=== PATIENT | female | born 1945 | race Caucasian/White ===

== ENCOUNTER → 2017-12-30 10:12 | Outpatient (CLI) | payer MEDICARE, SELFPAY ==
[2017-12-30 10:58] LABS: Basophils % 0.8 % (0.1-2.0); Eosinophils # 0.4 K/mm3 (0.0-0.4); Hematocrit 39.1 % (37.0-47.0); Hemoglobin 12.8 g/dL (12.2-16.2); Lymphocytes # 1.5 K/mm3 (0.7-4.5); Lymphocytes % 34.1 K/mm3 (10-50); Mean Corpuscular HGB Conc 32.6 g/dL (31.8-35.4); Mean Corpuscular Hemoglobin 30.2 pg (27.0-31.2); Mean Corpuscular Volume 92.6 fl (81-99); Mean Platelet Volume 7.8 fl (7.4-10.4); Monocytes # 0.3 K/mm3 (0.1-1.0); Monocytes % 5.6 % (1.7-9.3); Neutrophils # 2.3 K/mm3 (1.8-7.8); Neutrophils % 50.3 % (37.0-80.0); Platelet Count 227 K/mm3 (142-424); Red Blood Count 4.23 M/mm3 (4.20-5.40); Red Cell Distribution Width 12.9 % (11.5-17.5); White Blood Count 4.5 K/mm3 (4.8-10.8)
[2017-12-30 12:03] LABS: Alanine Aminotransferase 34 U/L (12-78); Albumin Level 3.9 gm/dL (3.4-5.0); Albumin/Globulin Ratio 1.2 (1.1-1.8); Alkaline Phosphatase 69 U/L (46-116); Anion Gap 11.6 mEq/L (5-15); Aspartate Amino Transferase 16 U/L (15-37); Bilirubin,Total 0.6 mg/dL (0.2-1.0); Blood Urea Nitrogen 21 mg/dL (7-18); Calcium 9.5 mg/dL (8.5-10.1); Carbon Dioxide 28 mmol/L (21.0-32.0); Chloride 107 mmol/L (98-107); Chol/HDL Ratio 3.3 (1-3.5); Cholesterol 140 mg/dL (140-200); Creatinine,Serum 1.11 mg/dL (0.55-1.02); Estimated Glomerular Filt Rate 48 ml/min (>60); GFR (African American) 59 ML/MIN (>60); Globulin 3.2 gm/dl (1.3-3.2); Glucose 89 mg/dL (74-106); HDL Cholesterol 43 mg/dL (29-89); LDL Cholesterol 66 mg/dL (0-130); Potassium 4.6 mmoL/L (3.5-5.1); Sodium 142 mmol/L (136-145); Total Protein,Serum 7.1 gm/dL (6.4-8.2); Triglycerides 154 mg/dL (30-200); VLDL Cholesterol 31 mg/dL (0-40)
[2018-01-01 14:51] LABS: Vitamin B12 317 pg/mL (232-1245)
== END ==
PROVIDERS: PCP Internal Medicine Adolescent Medicine; Visit Provider Nurse Practitioner Family
DX: E78.2 Mixed hyperlipidemia (principal); I10 Essential (primary) hypertension; E03.9 Hypothyroidism, unspecified; E53.8 Deficiency of other specified B group vitamins
CPT/HCPCS: 36415; 80053; 80061; 82607; 84443; 85025

== ENCOUNTER → 2018-07-15 08:59 | Outpatient (POV) | payer MEDICARE, SELFPAY | PROVIDERS: Visit Provider Dermatology | DX: Z00.00 Encounter for general adult medical examination without abnormal findings (principal) ==

== ENCOUNTER → 2019-12-01 13:14 | Outpatient (POV) | payer MEDICARE, SELFPAY | PROVIDERS: PCP Internal Medicine Adolescent Medicine; Visit Provider Dermatology | DX: Z00.00 Encounter for general adult medical examination without abnormal findings (principal) ==

== ENCOUNTER → 2019-12-15 09:14 | Outpatient (CLI) | payer MEDICARE, SELFPAY ==
[2019-12-15 09:35] LABS: Basophils # 0.1 K/mm3 (0-0.2); Basophils % 1.1 % (0.1-2.0); Eosinophils # 0.5 K/mm3 (0.0-0.4); Eosinophils % 9.8 % (0.1-12.0); Hematocrit 41.1 % (37.0-47.0); Hemoglobin 13.9 g/dL (12.2-16.2); Lymphocytes # 1.7 K/mm3 (0.7-4.5); Mean Corpuscular HGB Conc 33.9 g/dL (31.8-35.4); Mean Corpuscular Hemoglobin 31.4 pg (27.0-31.2); Mean Corpuscular Volume 92.7 fl (81-99); Mean Platelet Volume 8.8 fl (7.4-10.4); Monocytes # 0.2 K/mm3 (0.1-1.0); Monocytes % 4.6 % (1.7-9.3); Neutrophils # 2.3 K/mm3 (1.8-7.8); Neutrophils % 48.5 % (37.0-80.0); Platelet Count 224 K/mm3 (142-424); Red Blood Count 4.44 M/mm3 (4.20-5.40); Red Cell Distribution Width 13.3 % (11.5-17.5); White Blood Count 4.7 K/mm3 (4.8-10.8)
[2019-12-15 10:38] LABS: Chloride 109 mmol/L (98-107)
[2019-12-15 10:39] LABS: Potassium 4.5 mmoL/L (3.5-5.1); Sodium 142 mmol/L (136-145)
[2019-12-15 10:41] LABS: Blood Urea Nitrogen 18 mg/dl (7-17); Estimated Glomerular Filt Rate 61 ml/min (>60); GFR (African American) 74 ML/MIN (>60)
[2019-12-15 10:42] LABS: Alanine Aminotransferase 24 U/L (12-78); Albumin Level 4.1 g/dl (3.5-5.0); Albumin/Globulin Ratio 1.5 (1.1-1.8); Alkaline Phosphatase 73 U/L (38-126); Anion Gap 11.5 mEq/L (5-15); Aspartate Amino Transferase 28 U/L (14-36); Bilirubin,Total 0.7 mg/dl (0.2-1.3); Calcium 9.3 mg/dl (8.4-10.2); Carbon Dioxide 26 mmol/L (22.0-30.0); Chol/HDL Ratio 3.4 (1-3.5); Cholesterol 151 mg/dl (140-200); Globulin 2.7 g/dL (1.3-3.2); Glucose 90 mg/dl (74-100); HDL Cholesterol 45 mg/dl (40-60); Total Protein,Serum 6.8 g/dl (6.3-8.2); Triglycerides 132 mg/dl (30-150); VLDL Cholesterol 26 mg/dL (0-40)
[2019-12-15 10:53] LABS: Direct LDL Cholesterol 86.73 mg/dL (100-129)
[2019-12-15 11:13] LABS: Thyroid Stimulating Hormone 2.87 uIU/mL (0.465-4.68)
[2019-12-16 19:44] LABS: Vitamin B12 738 pg/mL (232-1245)
== END ==
PROVIDERS: Visit Provider Nurse Practitioner Family
DX: I10 Essential (primary) hypertension (principal); E78.2 Mixed hyperlipidemia; E03.9 Hypothyroidism, unspecified; E53.8 Deficiency of other specified B group vitamins
CPT/HCPCS: 36415; 80053; 80061; 82607; 84443; 85025

== ENCOUNTER → 2019-12-31 10:06 | Outpatient (CLI) | payer MEDICARE, SELFPAY ==
--- NOTE | 2019-12-31 10:10 | US_ITS ---
PROCEDURE: US SOFT TISSUE HEAD AND NECK CLINICAL INDICATION: MANDIBULAR SWELLING COMPARISON: No exams were available for comparison FINDINGS: The submandibular glands have an unremarkable appearance. No obvious mass cyst or abnormal fluid collection in the area of swelling IMPRESSION: Unremarkable limited ultrasound of the neck. CT without and with contrast may provide further evaluation if there is indeed a palpable nodule in this region Dictated by: Samy Ortiz MD 12/31/2019 14:08 Samy Ortiz MD in [place] 12/31/2019 14:08
== END ==
PROVIDERS: PCP Internal Medicine Adolescent Medicine; Visit Provider Nurse Practitioner Family
DX: R22.0 Localized swelling, mass and lump, head (principal)
CPT/HCPCS: 76536

== ENCOUNTER → 2020-02-20 09:18 | Outpatient (CLI) | payer MEDICARE, SELFPAY ==
[2020-02-20 10:33] LABS: Coronavirus 19 IgG Antibody Positive (Negative); Coronavirus 19 IgM Antibody Negative (Negative)
== END ==
PROVIDERS: Visit Provider Internal Medicine Gastroenterology
DX: Z01.818 Encounter for other preprocedural examination (principal); Z13.810 Encounter for screening for upper gastrointestinal disorder
CPT/HCPCS: 36415; 86328

== ENCOUNTER 2020-02-22 06:56 | Day surgery (SDC) | payer MEDICARE, SELFPAY ==
[2020-01-19 12:53] VITALS: BMI 29.0
[2020-02-17 13:24] VITALS: BMI 29.0
[2020-02-22] VITALS (8 sets, daily range): BP systolic 129–159; BP diastolic 71–84; PULSE 68–84; RESP 18–20; TEMP 36.2–36.3; O2SAT 90–99
--- NOTE | 2020-02-22 07:28 | P.PN_ITS ---
[facility] Anesthesia Checklist - Patient Identification Patient Identification: Arm Band, Verbal (Name & ) - Structural Data Admitted From: Home Planned Operative Procedure/s: EGD Consent for Planned Operative Procedure(s) Verified: Yes Verified Documents: Surgical Consent, History and Physical - NPO Status Verified Time NPO: 22:00 - Chart Verification Results Verified: CBC, BMP - Additional verifications Anesthesia Reactions: No - Airway Assessment C-Spine Mobility Assessed: Yes (MP 1, TMD 3, Full neck ROM) TMJ Mobility Assessed: Yes Dentition: Good Dentition - Neurological Assessment Level of Consciousness: Awake, Alert, Appropriate, Follows Commands Hx Seizures: No Numbness or tingling in extremities: No - Anesthesia Plan Anesthesia Risk discussed: Yes Anesthesia Plan: Verified ASA Class: II Anesthesia Type: MAC [facility] History I have reviewed the patient's past medical history: Yes Medical History: Reports:: Gastroesophageal Reflux Disease(GERD), Hypertension, MRSA (nasal) Denies:: Cancer, Diabetes Mellitus Type 1, Diabetes Mellitus Type 2, Internal Pacemaker, Seizures *Have you ever received a pneumonia vaccine?: Yes *Have you received a flu vaccine this season?: Yes Other Medical History: Reports: Hypothyroidism Anesthesia experience/problems:: No prior complications Laterality Cases: Bilateral: Cataract Other Surgeries: Yes: , Other (Toe sx x2). No: Pacemaker Amputation: No Fractures: No - *Social History Last grade of school completed: Some college Alcohol Intake: never Substance Use Type: denies use *Occupational Status:: retired Housing: house Household Members: spouse *Travel in the last 8 weeks: None Family Hx:: No significant family history
--- NOTE | 2020-02-22 07:53 | P.PCN_ITS ---
[facility] Procedure Note Procedure Note:: Upper Endoscopy Procedure Report: Esophagogastroduodenoscopy with cold biopsies and TTS balloon dilation Endoscopost: Julio Cesar Hdz II, MD Referring Physician: MORIAH Amador Date of Procedure: February 22, 2020 Equipment: Olympus GIF 180 standard upper endoscope Sedation: MAC sedation Indications: Mrs. Montague is a 74-year-old female with a long history of GERD. She was having painful swallowing/odynophagia and sometimes feeling as if food was lodging in her throat. She did report some reflux. She gets some burning epigastric abdominal discomfort and dyspepsia. She has some belching and early satiety. She reports minor bloating. The patient reports no nausea. She has no dysphagia presently. She has normal bowel function. The patient did improve after initiation of omeprazole. The patient did have an EGD (by me) in February 2017 and did have a Schatzki's ring dilated at that time. She had nonerosive GERD with a 2 cm hiatal hernia. Procedure: Prior to the procedure, a history and physical exam was performed, and patient's medications and allergies were reviewed. The risks, benefits and alternatives of the sedation and procedure were discussed with the patient. All questions were answered and informed consent was obtained. The patient was brought to the procedure room. Patient identification and proposed procedure were verified by the physician and the nurse. The patient was placed in a left lateral decubitus position and the scope was passed under direct vision. Throughout the procedure, the patient's blood pressure, pulse, and oxygen saturations were monitored continuously. The upper GI endoscopy was accomplished without difficulty. The patient tolerated the procedure well. Findings: The scope was passed directly into the upper esophagus and advanced to the third portion of the duodenum. The post bulbar duodenum and duodenal bulb were normal with normal mucosa and conniventes. The scope was withdrawn through a normal duodenal bulb and pylorus into the stomach. There was some mild linear reactive gastropathy of the antrum and body. The remainder of the antrum, body and fundus of the stomach were grossly normal. Upon retroflexion there was a 2 cm hiatal hernia. 2 biopsies were taken in the antrum and along the lesser curvature for histology to rule out gastritis and/or H pylori. The scope was then withdrawn into the esophagus. There was a distal Schatzki's ring. This was dilated to 60 Beninese/20 mm with a TTS hydrostatic balloon. There were tertiary contractions and evidence of moderate esophageal dysmotility. The entire esophagus was dilated to 60 Beninese. There was some resistance at the cricopharyngeus. There was no evidence of reflux esophagitis or Butt's. The remainder of the esophageal mucosa was normal. Impression: 1. Nonerosive GERD with moderate esophageal dysmotility, cricopharyngeal spasm and small 2 cm hiatal hernia 2. Schatzki's ring dilated to 20 mm 3. Mild linear reactive gastropathy Plan: The patient does have functional GERD (uncomplicated GERD). She has responded to omeprazole. This is certainly driven by gas pressure gradients. We will discuss additional treatment options. She should have some clinical improvement with dilation as well.
== END 2020-02-22 09:24 | disposition home or self-care (01) ==
LOC: OUTP 06:58
PROVIDERS: PCP Internal Medicine Adolescent Medicine; Visit Provider Internal Medicine Gastroenterology
PROC: 0DJ08ZZ Inspection of Upper Intestinal Tract, Via Natural or Artificial Opening Endoscopic (ICD-10-PCS; CPT 43235; principal; 2020-02-22 08:00)
DX: K21.9 Gastro-esophageal reflux disease without esophagitis (principal); K22.2 Esophageal obstruction; K44.9 Diaphragmatic hernia without obstruction or gangrene; J39.2 Other diseases of pharynx; K31.9 Disease of stomach and duodenum, unspecified; I10 Essential (primary) hypertension; E03.9 Hypothyroidism, unspecified; Z86.14 Personal history of Methicillin resistant Staphylococcus aureus infection
CPT/HCPCS: 43239; 43249; 88305; C1726

== ENCOUNTER → 2020-07-04 07:18 | Outpatient (CLI) | payer MEDICARE, SELFPAY ==
[2020-07-04 07:39] LABS: Basophils % 0.9 % (0.1-2.0); Eosinophils # 0.4 K/mm3 (0.0-0.4); Eosinophils % 7.7 % (0.1-12.0); Hematocrit 38.3 % (37.0-47.0); Hemoglobin 12.6 g/dL (12.2-16.2); Lymphocytes # 1.8 K/mm3 (0.7-4.5); Lymphocytes % 37.6 % (10-50); Mean Corpuscular HGB Conc 32.8 g/dL (31.8-35.4); Mean Corpuscular Hemoglobin 30.3 pg (27.0-31.2); Mean Corpuscular Volume 92.4 fl (81-99); Monocytes # 0.3 K/mm3 (0.1-1.0); Monocytes % 5.3 % (1.7-9.3); Neutrophils # 2.3 K/mm3 (1.8-7.8); Neutrophils % 48.5 % (37.0-80.0); Platelet Count 233 K/mm3 (142-424); Red Blood Count 4.15 M/mm3 (4.20-5.40); Red Cell Distribution Width 13.4 % (11.5-17.5); White Blood Count 4.8 K/mm3 (4.8-10.8)
[2020-07-04 09:19] LABS: Alanine Aminotransferase 39 U/L (12-78); Albumin/Globulin Ratio 1.4 (1.1-1.8); Alkaline Phosphatase 84 U/L (38-126); Anion Gap 9.8 mEq/L (5-15); Aspartate Amino Transferase 37 U/L (14-36); Bilirubin,Total 0.3 mg/dl (0.2-1.3); Blood Urea Nitrogen 19 mg/dl (7-17); Calcium 9.8 mg/dl (8.4-10.2); Carbon Dioxide 26 mmol/L (22.0-30.0); Chloride 110 mmol/L (98-107); Chol/HDL Ratio 5.9 (1-3.5); Cholesterol 220 mg/dl (140-200); Estimated Glomerular Filt Rate 61 ml/min (>60); GFR (African American) 74 ML/MIN (>60); Globulin 2.9 g/dL (1.3-3.2); Glucose 97 mg/dl (74-100); HDL Cholesterol 37 mg/dl (40-60); Potassium 4.8 mmoL/L (3.5-5.1); Sodium 141 mmol/L (136-145); Total Protein,Serum 6.9 g/dl (6.3-8.2); Triglycerides 187 mg/dl (30-150); VLDL Cholesterol 37 mg/dL (0-40)
[2020-07-04 09:30] LABS: Direct LDL Cholesterol 153.48 mg/dL (100-129)
[2020-07-04 09:51] LABS: Thyroid Stimulating Hormone 0.38 uIU/mL (0.465-4.68)
[2020-07-04 10:09] LABS: Vitamin B12 450 pg/mL (239-931)
== END ==
PROVIDERS: Visit Provider Internal Medicine Adolescent Medicine
DX: I10 Essential (primary) hypertension (principal); E78.2 Mixed hyperlipidemia; E03.9 Hypothyroidism, unspecified; E53.8 Deficiency of other specified B group vitamins; K21.9 Gastro-esophageal reflux disease without esophagitis
CPT/HCPCS: 36415; 80053; 80061; 82607; 84443; 85025

== ENCOUNTER → 2020-10-12 16:18 | Outpatient (CLI) | payer MEDICARE, SELFPAY | PROVIDERS: Visit Provider Nurse Practitioner Family | DX: R35.0 Frequency of micturition (principal) | CPT/HCPCS: 87086; 87088; 87186 ==

== ENCOUNTER → 2020-10-17 09:14 | Outpatient (CLI) | payer MEDICARE, SELFPAY ==
[2020-10-17 11:23] LABS: Chloride 107 mmol/L (98-107); Potassium 4.9 mmoL/L (3.5-5.1); Sodium 140 mmol/L (136-145)
[2020-10-17 11:26] LABS: Alanine Aminotransferase 22 U/L (12-78); Albumin Level 4.1 g/dl (3.5-5.0); Albumin/Globulin Ratio 1.5 (1.1-1.8); Alkaline Phosphatase 90 U/L (38-126); Anion Gap 11.9 mEq/L (5-15); Aspartate Amino Transferase 28 U/L (14-36); Bilirubin,Total 0.6 mg/dl (0.2-1.3); Blood Urea Nitrogen 19 mg/dl (7-17); Carbon Dioxide 26 mmol/L (22.0-30.0); Cholesterol 150 mg/dl (140-200); Estimated Glomerular Filt Rate 70 ml/min (>60); GFR (African American) 85 ML/MIN (>60); Globulin 2.7 g/dL (1.3-3.2); Total Protein,Serum 6.8 g/dl (6.3-8.2); Triglycerides 170 mg/dl (30-150); VLDL Cholesterol 34 mg/dL (0-40)
[2020-10-17 11:27] LABS: Calcium 8.9 mg/dl (8.4-10.2); Chol/HDL Ratio 4.5 (1-3.5); Glucose 91 mg/dl (74-100); HDL Cholesterol 33 mg/dl (40-60)
[2020-10-17 11:38] LABS: Direct LDL Cholesterol 85.57 mg/dL (100-129)
== END ==
PROVIDERS: Visit Provider Nurse Practitioner Family
DX: E78.2 Mixed hyperlipidemia (principal); R35.0 Frequency of micturition
CPT/HCPCS: 36415; 80053; 80061; 87086

== ENCOUNTER → 2021-03-13 07:46 | Outpatient (CLI) | payer MEDICARE, SELFPAY ==
[2021-03-13 09:36] LABS: Thyroid Stimulating Hormone 1.74 uIU/mL (0.465-4.68)
== END ==
PROVIDERS: Visit Provider Internal Medicine Adolescent Medicine
DX: E03.9 Hypothyroidism, unspecified (principal)
CPT/HCPCS: 36415; 84443

== ENCOUNTER → 2021-03-15 10:58 | Outpatient (CLI) | payer MEDICARE, SELFPAY ==
--- NOTE | 2021-03-15 11:03 | XR_ITS ---
PROCEDURE: XR CERVICAL SPINE 5V CLINICAL INDICATION: HAND NUMBNESS, NECK PAIN COMPARISON: No exams were available for comparison FINDINGS: Normal alignment. Multilevel cervical spondylosis. Degenerative disc disease C4-C5 with endplate osteophytes, C5-C6 with endplate osteophytes, and C6-C7 with endplate osteophytes. Nuchal ligament calcification noted to at the C6 level. Foraminal narrowing on the left at C3-C4 and on the right at C4-C5. Mild cervical curvature convex right. Facet hypertrophic changes are present on the left at C3-C4. No fracture or dislocation. IMPRESSION: Degenerative changes as described above. Dictated by: Samy Ortiz MD 03/15/2021 14:27 Samy Ortiz MD in [place] 03/15/2021 14:27
== END ==
PROVIDERS: PCP Internal Medicine Adolescent Medicine; Visit Provider Internal Medicine Adolescent Medicine
DX: M54.2 Cervicalgia (principal); R20.0 Anesthesia of skin
CPT/HCPCS: 72050

== ENCOUNTER 2021-04-14 10:00 | Outpatient (RCR) | payer MEDICARE, SELFPAY ==
--- NOTE | 2021-03-23 11:29 | HMH.PTOPEV ---
PT Outpatient Evaluation Rehab PT Outpatient Evaluation Start: 03/23/21 10:51 Freq: Status: Active Protocol: Document 03/23/21 11:17 LAVERN (Rec: 03/23/21 11:29 LAVERN [id number]) Electronically Signed By Valentín Case, PT 03/23/21 11:17 Outpatient Therapy Subjective History Subjective History Patient is a 75 year old female presenting to outpatient PT with reports of chronic cervical spine pain with intermittent LUE radicular symptoms. Symptoms of insidious onset starting approximately 5 years ago. Most recent imaging indicates multi-level spondylosis/DDD. Comorbidities include hx of HTN,HL and hypothyroidism. Chief Complaint Pain,Stiff,Paresthesia Symptom Type Ache,Numbness,Tingling Symptoms Relieved By Rest/Positioning Symptoms Aggravated By Physical Activity,Lifting Prior Functional Limitations None Current Functional Limitations Reaching,Lifting,Housework, Sleeping Symptom Description Constant but Variable Level of pain today (0-10) 3 Pain scale - at its best (0-10) 3 Pain scale - at its worst (0-10) 5 Cervical Eval Palpation Cervical Muscles L Cervical Paraspinal,L Suboccipital,L CT Junction Posture Head/C-Spine Posture Sitting Position Neutral Position Head/C-Spine Posture Standing Position Neutral Position Flexibility Deficits Upper Trapezius Muscle Length (L) Moderate Tightness Levaetor Scapulae Muscle Length (L) Moderate Tightness Scalene Group Muscle Length (L) Moderate Tightness Pectoralis Minor Muscle Length (L) Moderate Tightness Passive Joint Mobility Cervical PIVM Dec: R OA L OA R AA L AA R C2/3 L C2/3 R C3/4 L C3/4 R C4/5 L C4/5 R C5/6 L C5/6 R C6/7 L C6/7 R C7/T1 L C7/T1 AROM Cervical Spine Extension Active Range of 50 Motion (degrees) Cervical Spine Flexion Active Range of 40 Motion (degrees)
== END 2021-04-14 10:05 | disposition home or self-care (01) ==
LOC: PT 10:00
PROVIDERS: PCP Internal Medicine Adolescent Medicine; Visit Provider Internal Medicine Adolescent Medicine
DX: R20.0 Anesthesia of skin (principal)
CPT/HCPCS: 20560; 97010; 97014; 97035; 97110; 97163; G0283

== ENCOUNTER → 2022-10-18 15:14 | Outpatient (CLI) | payer MEDICARE, OTHER, SELFPAY ==
[2022-10-18 15:47] LABS: Basophils % 0.5 % (0.1-2.0); Eosinophils # 0.3 K/mm3 (0.0-0.4); Eosinophils % 4.5 % (0.1-12.0); Hematocrit 40.5 % (37.0-47.0); Hemoglobin 12.8 g/dL (12.2-16.2); Lymphocytes # 1.9 K/mm3 (0.7-4.5); Lymphocytes % 28.1 % (10-50); Mean Corpuscular HGB Conc 31.8 g/dL (31.8-35.4); Mean Corpuscular Volume 91.3 fl (81-99); Mean Platelet Volume 8.4 fl (7.4-10.4); Monocytes # 0.3 K/mm3 (0.1-1.0); Monocytes % 4.9 % (1.7-9.3); Neutrophils # 4.3 K/mm3 (1.8-7.8); Platelet Count 244 K/mm3 (142-424); Red Blood Count 4.43 M/mm3 (4.20-5.40); Red Cell Distribution Width 13.6 % (11.5-17.5); White Blood Count 6.9 K/mm3 (4.8-10.8)
[2022-10-18 16:37] LABS: 25-OH Vitamin D, Total 23.6 ng/mL (30-100)
[2022-10-18 16:50] LABS: Thyroid Stimulating Hormone 0.09 uIU/mL (0.465-4.68)
[2022-10-18 17:49] LABS: Chloride 108 mmol/L (98-107); Potassium 4.7 mmoL/L (3.5-5.1); Sodium 141 mmol/L (136-145)
[2022-10-18 17:51] LABS: Blood Urea Nitrogen 16 mg/dl (7-17); Estimated Glomerular Filt Rate 61 ml/min (>60); GFR (African American) 74 ML/MIN (>60)
[2022-10-18 17:52] LABS: Alanine Aminotransferase 23 U/L (12-78); Albumin Level 4.2 g/dl (3.5-5.0); Albumin/Globulin Ratio 1.6 (1.1-1.8); Alkaline Phosphatase 87 U/L (38-126); Anion Gap 15.7 mEq/L (5-15); Aspartate Amino Transferase 31 U/L (14-36); Bilirubin,Total 0.9 mg/dl (0.2-1.3); Calcium 8.8 mg/dl (8.4-10.2); Carbon Dioxide 22 mmol/L (22.0-30.0); Chol/HDL Ratio 3.2 (1-3.5); Cholesterol 133 mg/dl (140-200); Globulin 2.7 g/dL (1.3-3.2); Glucose 83 mg/dl (74-100); HDL Cholesterol 41 mg/dl (40-60); Total Protein,Serum 6.9 g/dl (6.3-8.2); Triglycerides 123 mg/dl (30-150); VLDL Cholesterol 25 mg/dL (0-40)
[2022-10-18 18:04] LABS: Direct LDL Cholesterol 71.12 mg/dL (100-129)
[2022-10-18 19:23] LABS: Vitamin B12 211 pg/mL (239-931)
== END ==
PROVIDERS: PCP Internal Medicine Adolescent Medicine; Visit Provider Nurse Practitioner Family
DX: E03.9 Hypothyroidism, unspecified (principal); E78.2 Mixed hyperlipidemia; E55.9 Vitamin D deficiency, unspecified; E53.8 Deficiency of other specified B group vitamins; R53.83 Other fatigue
CPT/HCPCS: 36415; 80053; 80061; 82306; 82607; 84443; 85025

== ENCOUNTER → 2023-02-26 09:10 | Outpatient (CLI) | payer MEDICARE, OTHER, SELFPAY ==
[2023-02-26 09:36] LABS: Basophils % 0.6 % (0.1-2.0); Eosinophils # 0.2 K/mm3 (0.0-0.4); Eosinophils % 4.6 % (0.1-12.0); Hemoglobin 13.1 g/dL (12.2-16.2); Lymphocytes # 1.1 K/mm3 (0.7-4.5); Lymphocytes % 23.5 % (10-50); Mean Corpuscular HGB Conc 34.5 g/dL (31.8-35.4); Mean Corpuscular Hemoglobin 31.9 pg (27.0-31.2); Mean Corpuscular Volume 92.5 fl (81-99); Mean Platelet Volume 8.9 fl (7.4-10.4); Monocytes # 0.3 K/mm3 (0.1-1.0); Monocytes % 5.5 % (1.7-9.3); Neutrophils # 3.1 K/mm3 (1.8-7.8); Neutrophils % 65.8 % (37.0-80.0); Platelet Count 213 K/mm3 (142-424); Red Blood Count 4.11 M/mm3 (4.20-5.40); Red Cell Distribution Width 13.6 % (11.5-17.5); White Blood Count 4.6 K/mm3 (4.8-10.8)
[2023-02-26 10:03] LABS: Alanine Aminotransferase 27 U/L (12-78); Albumin/Globulin Ratio 1.5 (1.1-1.8); Alkaline Phosphatase 89 U/L (38-126); Anion Gap 12.3 mEq/L (5-15); Aspartate Amino Transferase 29 U/L (14-36); Bilirubin,Total 0.6 mg/dl (0.2-1.3); Blood Urea Nitrogen 17 mg/dl (7-17); Carbon Dioxide 24 mmol/L (22.0-30.0); Chloride 110 mmol/L (98-107); Chol/HDL Ratio 3.8 (1-3.5); Cholesterol 124 mg/dl (140-200); Estimated Glomerular Filt Rate 61 ml/min (>60); GFR (African American) 74 ML/MIN (>60); Globulin 2.6 g/dL (1.3-3.2); Glucose 98 mg/dl (74-100); HDL Cholesterol 33 mg/dl (40-60); Potassium 4.3 mmoL/L (3.5-5.1); Sodium 142 mmol/L (136-145); Total Protein,Serum 6.6 g/dl (6.3-8.2); Triglycerides 199 mg/dl (30-150); VLDL Cholesterol 40 mg/dL (0-40)
[2023-02-26 10:14] LABS: Direct LDL Cholesterol 67.58 mg/dL (100-129)
[2023-02-26 10:18] LABS: 25-OH Vitamin D, Total 38.3 ng/mL (30-100)
[2023-02-26 10:36] LABS: Thyroid Stimulating Hormone 2.23 uIU/mL (0.465-4.68)
[2023-02-26 10:53] LABS: Free T4 (Free Thyroxine) 1.45 ng/dl (0.78-2.19)
[2023-02-26 10:55] LABS: Vitamin B12 768 pg/mL (239-931)
== END ==
PROVIDERS: PCP Nurse Practitioner Family; Visit Provider Nurse Practitioner Family
DX: E03.9 Hypothyroidism, unspecified (principal); E55.9 Vitamin D deficiency, unspecified; E78.2 Mixed hyperlipidemia; E53.8 Deficiency of other specified B group vitamins
CPT/HCPCS: 36415; 80053; 80061; 82306; 82607; 84439; 84443; 85025

== ENCOUNTER 2024-03-16 16:49 | Outpatient (CLI) | payer MEDICARE, OTHER, SELFPAY ==
--- NOTE | 2024-03-16 16:54 | XR_ITS ---
PROCEDURE INFORMATION: Exam: XR Left Ankle Exam date and time: 03/16/2024 4:59 PM Age: 78 years old Clinical indication: Pain; Ankle; Left; Additional info: Ankle pain TECHNIQUE: Imaging protocol: Radiologic exam of the left ankle. Views: 3 or more views. COMPARISON: CR XR FOOT WT BEARING LT 3V 03/16/2024 4:59 PM FINDINGS: Bones/joints: No fracture or subluxation. Minimal degenerative change. Chronic appearing fragmentation of small Achilles insertional spur. Soft tissues: Normal. IMPRESSION: No fracture or subluxation. Minimal degenerative change.
--- NOTE | 2024-03-16 16:54 | XR_ITS ---
PROCEDURE INFORMATION: Exam: XR Left Foot Complete; Alignment Exam date and time: 03/16/2024 4:59 PM Age: 78 years old Clinical indication: Pain; Foot; Left; Additional info: Foot pain TECHNIQUE: Imaging protocol: Radiologic exam of the left foot. Views: 3 or more views. COMPARISON: CR XR ANKLE WT BEARING LT MIN 3V 03/16/2024 4:59 PM FINDINGS: Bones/joints: No fracture or subluxation. Chronic appearing fragmentation of the small Achilles insertional spur. Minimal degenerative change. Soft tissues: Normal. IMPRESSION: No fracture or subluxation.
== END 2024-03-16 23:59 | disposition home or self-care (01) ==
PROVIDERS: PCP Internal Medicine Adolescent Medicine; Visit Provider Nurse Practitioner
DX: M79.672 Pain in left foot (principal)
CPT/HCPCS: 73610; 73630

== ENCOUNTER 2024-05-25 12:30 | Outpatient (CLI) | payer MEDICARE, OTHER, SELFPAY ==
[2024-05-25 12:48] LABS: Basophils # 0.1 K/mm3 (0-0.2); Basophils % 0.6 % (0.1-2.0); Eosinophils # 0.2 K/mm3 (0.0-0.4); Eosinophils % 2.5 % (0.1-12.0); Hematocrit 41.7 % (37.0-47.0); Hemoglobin 13.5 g/dL (12.2-16.2); Lymphocytes # 2.1 K/mm3 (0.7-4.5); Lymphocytes % 24.7 % (10-50); Mean Corpuscular HGB Conc 32.4 g/dL (31.8-35.4); Mean Corpuscular Hemoglobin 30.4 pg (27.0-31.2); Mean Corpuscular Volume 93.9 fl (81-99); Mean Platelet Volume 10.5 fl (7.4-10.4); Monocytes # 0.4 K/mm3 (0.1-1.0); Monocytes % 5.2 % (1.7-9.3); Neutrophils # 5.6 K/mm3 (1.8-7.8); Neutrophils % 66.8 % (37.0-80.0); Platelet Count 270 K/mm3 (142-424); Red Blood Count 4.44 M/mm3 (4.20-5.40); Red Cell Distribution Width 13.4 % (11.5-17.5); White Blood Count 8.3 K/mm3 (4.8-10.8)
[2024-05-25 13:42] LABS: Chloride 106 mmol/L (98-107)
[2024-05-25 13:43] LABS: Albumin Level 4.4 g/dl (3.5-5.0); Potassium 4.6 mmoL/L (3.5-5.1); Sodium 141 mmol/L (136-145)
[2024-05-25 13:45] LABS: Blood Urea Nitrogen 19 mg/dl (7-17); Estimated Glomerular Filt Rate 61 ml/min (>60); GFR (African American) 73 ML/MIN (>60)
[2024-05-25 13:46] LABS: Alanine Aminotransferase 30 U/L (12-78); Albumin/Globulin Ratio 1.8 (1.1-1.8); Alkaline Phosphatase 83 U/L (38-126); Anion Gap 13.6 mEq/L (5-15); Aspartate Amino Transferase 26 U/L (14-36); Bilirubin,Total 0.8 mg/dl (0.2-1.3); Calcium 9.3 mg/dl (8.4-10.2); Carbon Dioxide 26 mmol/L (22.0-30.0); Chol/HDL Ratio 3.9 (1-3.5); Cholesterol 149 mg/dl (140-200); Globulin 2.4 g/dL (1.3-3.2); Glucose 91 mg/dl (74-100); HDL Cholesterol 38 mg/dl (40-60); Total Protein,Serum 6.8 g/dl (6.3-8.2); Triglycerides 170 mg/dl (30-150); VLDL Cholesterol 34 mg/dL (0-40)
[2024-05-25 13:56] LABS: 25-OH Vitamin D, Total 36.3 ng/mL (30-100)
[2024-05-25 13:57] LABS: Direct LDL Cholesterol 73.56 mg/dL (100-129)
[2024-05-25 14:17] LABS: Thyroid Stimulating Hormone 1.22 uIU/mL (0.465-4.68)
[2024-05-25 15:35] LABS: Vitamin B12 630 pg/mL (239-931)
== END 2024-05-25 23:59 | disposition home or self-care (01) ==
LOC: LAB 12:33
PROVIDERS: PCP Nurse Practitioner Family; Visit Provider Nurse Practitioner Family
DX: I10 Essential (primary) hypertension (principal); E78.2 Mixed hyperlipidemia; E03.9 Hypothyroidism, unspecified; E53.8 Deficiency of other specified B group vitamins; E55.9 Vitamin D deficiency, unspecified
CPT/HCPCS: 36415; 80053; 80061; 82306; 82607; 84443; 85025

== ENCOUNTER 2024-05-29 09:22 | Outpatient (CLI) | payer MEDICARE, OTHER, SELFPAY ==
--- NOTE | 2024-05-29 09:24 | XR_ITS ---
FINAL REPORT TECHNIQUE: Bone densitometry calculations of the lumbar spine and left hip were obtained. CLINICAL HISTORY: SCREENING COMPARISON: None FINDINGS: Using L1-4, the bone mineral density of the spine is 1.077 g/cm2, corresponding to T-score of 0.3. Using the left hip, the bone mineral density of the femoral neck is 0.880 g/cm2, corresponding to a T-score of -0.5. Using the right hip, the bone mineral density of the femoral neck is 0.908 g/cm?, corresponding to a T-score of -0.3. NOTE: T-score: Standard deviation compared with peak bone mass of young adult mean. *Following the recommendations of the International Society of Bone densitometry, classification of hip BMD is based on the lower of two T-scores; total hip or femoral neck. IMPRESSION: Normal bone mineral density of the lumbar spine and bilateral hips. Reviewed, Interpreted and Dictated by Champ Bynum MD Transcribed by Susana Carmona Authenticated and [facility]
== END 2024-05-29 23:59 | disposition home or self-care (01) ==
LOC: RAD 09:22
PROVIDERS: PCP Nurse Practitioner Family; Visit Provider Nurse Practitioner Family
DX: Z78.0 Asymptomatic menopausal state (principal)
CPT/HCPCS: 77080

== ENCOUNTER 2024-09-10 15:51 | Outpatient (CLI) | payer MEDICARE, OTHER, SELFPAY ==
--- NOTE | 2024-09-10 15:54 | XR_ITS ---
FINAL REPORT CLINICAL HISTORY: Left ankle pain Swelling lateral side COMPARISON: 03/16/2024 FINDINGS: AP, oblique, and lateral views of the left ankle were obtained. There is no acute fracture or dislocation. The ankle mortise is intact. There is mild degenerative joint disease. There is no acute soft tissue abnormality. IMPRESSION: Mild degenerative disease without acute osseous abnormality of the left ankle. Reviewed, Interpreted and Dictated by Priya Schafer MD Transcribed by Michelle Hameed Authenticated and [facility]
== END 2024-09-10 23:59 | disposition home or self-care (01) ==
LOC: LAB 15:52
PROVIDERS: PCP Internal Medicine Adolescent Medicine; Visit Provider Nurse Practitioner
DX: M19.072 Primary osteoarthritis, left ankle and foot (principal); M77.32 Calcaneal spur, left foot; M79.672 Pain in left foot; M72.2 Plantar fascial fibromatosis
CPT/HCPCS: 73610

== ENCOUNTER 2024-11-19 06:31 | Outpatient (CLI) | payer MEDICARE, OTHER, SELFPAY ==
--- OUTSIDE RECORDS SUMMARY | 2024-08-08 17:30 | XMS_ITS ---
Author Organization [facility] IM PE D VIRGEN Address [address] [place] [address] Care Team Providers Care Power Regulator Name Role Phone John Tobar Primary Care Provider Veronique Ribera Unavailable [phone] Migration, Provider Unavailable Unavailable [facility] Encounter Medications Medication SIG (Take, [...] review and pick correct strength-formulat [facility]. If intended option is not shown, discontinue and re-order from Quick Search* Active Lisinopril 20 MG 1 tab(s) orally once a day; Duration: 90 days Active Omeprazole 40 MG 1 cap(s) orally once a day; Duration: 90 days Active Cyanocobalamin 1000 MCG/ML 1000 mcg intramuscularly once a month; Duration: 84 days Active Encounters Encounter Location Date Provider Diagnosis [facility] [place] [facility] [address] [place] [address] 08/08/2024 Provider Migration GERD without esophagitis K21.9 [...] Notes * Amaya GARCIADOB:1945 (79 yo F)Acc No.[id number]:08/08/2024 Patient: Amaya ARGUELLO Provider: Ibrahima leroy Migration :1945 A ge:78 Y S ex:Female Date:08/08/2024 Address:[address] [facility] [place], [id number] Pcp:John Tobar Subjective: * Chief Complaints: * 1 . Multum To Medispan Conversion Encounter. * Medical History: * Medications: T aking Multivitamin 1 TAB ONCE A DAY , Notes to Pharmacist: *Please review and pick [facility]. If intended option is not shown, [...] ? * * Electronic signature of Prov ideagustina Migration on 11/19/2024 at 06:34 AM EDT Sign off status: Pending * Provider: Ibrahima leroy Migration Date: 0 08/08/2024 Generated for Josue ly/Bhumi/Barbaraitting on: 0 11/19/2024 06:34 AM EDT
--- OUTSIDE RECORDS SUMMARY | 2024-11-09 06:30 | XMS_ITS ---
Author Organization [facility] PE D VIRGEN Address [address] [facility] [address] [place] [address] Care Team Providers Care Machine Operator Helper Name Role Phone EkaterinaJohn Primary Care Provider Veronique Ribera Unavailable [phone] Allergies No Known Allergies Reason For Referral Reason Cardiolyte GXT Ech o Diagnosis 1 NORMAN (dyspnea on exer tion) (R06.09) Referral Organization [facility] MARY JULIAN Referring Provider First Name Veronique Referring Provider Last Name Mounika Referring Provider Speciality Family Pra ctice Referred Organization [facility] Referred Address [address] [place], [place],[address],[place] Referred Provider Specialty Diagnostic R adiology General Notes Bhavani White 2024 04:08:39 PM >Orders sent to [facility] to schedule appt with [facility] Referral Priority [...] review and pick correct strength-formulati on from [employer] options. If intended option is [...] 11/09/2024 Encounters Encounter Location Date Provider Diagnosis [facility] VIRGEN [address] [place] [address] 11/09/2024 Veronique Ribera NORMAN (dyspnea on exertion) [...] Order Date EKG : In House 11/09/2024 Echocardiogram 11/09/2024 Cardiolite GXT 11/09/2024 Referrals Referral Date Details 11/09/2024 11/09/2024, Cardioly te GXT Echo, [address] [place], [address], Next Appt Details Follow Up: pending results, Reason: Progress Notes * Amaya GARCIADOB:1945 (79 yo F)Acc No.[id number]:11/09/2024 Progress Notes Patient: Amaya ARGUELLO Provider: MORIAH Jon :1945 A ge:79 Y S ex:Female Date:11/09/2024 Address:[facility] [address] [place], [id number] Pcp:John Tobar Subjective: * Chief Complaints: * [...] Y es. C ONSTITUTIONAL: See HPI Y kana. G ASTROENTEROLOGY: Reviewed, No Symptoms Reported: Y [...] , Parkinson. P aternal Grand Father: , [place]. P aternal Grand Mother: , [place]. M aternal Grand Father: , Stroke. Maternal Grand Mother: , [place]. P aternal uncle: . P aternal aunt: [...] Travel outside [place]: no. 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 * Medications: T aking Multivitamin 1 [...] hyperlipidemia - E78.2 Plan: * Treatment: ?Imaging: Echocardiogram * ?Imaging: Cardiolite GXT* Clinical Notes: EKG today is unremarkable but [...] day, 90 days, 90 Tablet, Refills 1.?Imaging: Echocardiogram * ?Imaging: Cardiolite GXT* 5.?Mixed hyperlipidemia?Imaging: Echocardiogram * ?Imaging: Cardiolite GXT* * Procedure Codes: 9 3000 EKG WITH INTERP. * Follow Up: p ending results * * Sign off status: Completed true * Provider: MORIAH Jon Date: 11/09/2024 Generated for Josue ly/Bhumi/Virgen on: 11/19/2024 06:34 AM EDT History and Physical Notes * [...] Provider Not es 11/09/2024 Veronique Ribera Cardiosalvador G XT Echo
--- NOTE | 2024-11-19 | CA_ITS ---
APPROVED REPORT EXAM: Comprehensive 2D, Doppler, and color-flow Echocardiogram Sorter Upholstery Parts: Nasreen Thacker RT(R) Ht: 5 ft 6 in Wt: 180lbs BSA: 1.91 BP: 137/70 mmHg Indications: dyspnea on exertion, murmur, palpitations, hypertension 2D Dimensions LVEF (Tam's) 67.40 % F: 54 - 74 LV Volume 67.80 mL F: 46 - 106 LV Volume Index 35.5 mL/m2 F: 29 - 61 LA Volume 29.80 mL LA Volume Index 15.60 mL/m2 (M/F) 16-34 EF AP4 68.30 % EF AP2 65.3 % EF BP 67.4 % GL Strain -20.5 % M-Mode Dimensions RVDd 2.06 cm (0.9-2.6) LA Diam 3.63 cm (1.9-4.0) LVDd 3.90 cm (3.5-5.7) LVDs 2.72 cm (3.5-5.7) IVSd 0.84 cm (0.6-1.1) PWd 0.84 cm (0.6-1.1) EF (Teich) 58.30% FS 30.30% EDV (Teich) 65.90 mL ESV (Teich) 27.50 mL LV Diastology E Decel Time 207 (160-240 msec) E/A Ratio 1.2 Mitral Valve MV E Max Raul. 85.0 (40-130 cm/s) MV A Velocity 73.0 (40-130 cm/s) E/A Ratio 1.15 MV PHT 61.0 ms Tricuspid Valve TR P. Velocity 244.00 cm/s Left Ventricle The left ventricle is normal size. The left ventricular systolic function is normal. The left ventricular ejection fraction is within the normal range. Proximal septal thickening is present. There is normal LV segmental wall motion. The left ventricular diastolic function is normal. LVEF is 60%. Right Ventricle The right ventricle is normal size. The right ventricular systolic function is normal. Atria Left atrium is mildly dilated. The right atrium size is normal. There is no Doppler evidence of interatrial shunt. Aortic Valve The aortic valve is mildly thickened. There is no aortic valvular stenosis. No aortic regurgitation is present. Mitral Valve The mitral valve is normal in structure. No evidence of mitral valve stenosis. Mild mitral regurgitation. Tricuspid Valve Tricuspid valve is grossly normal in structure and function. Mild tricuspid regurgitation. RVSP is 20-25 mmHg. Pulmonic Valve The pulmonary valve is normal in structure. Trace pulmonic regurgitation. Great Vessels The aortic root is normal in size. IVC is normal in size and collapses >50% with inspiration. Pericardium There is no pericardial effusion. Other Information Study Quality: Adequate Conclusion Normal biventricular systolic function. Mild LA dilation. Mild MR, mild SD. Electronically signed by : Leta Reese MD 11/24/2024 10:26:59
--- NOTE | 2024-11-19 | CA_ITS ---
APPROVED REPORT Exam: Pharmacologic Technologist: Michelle Angelo Ht: 5 ft 6 in Wt: 186 lbs BSA: 1.94 m2 HR: 70 bpm BP: 137/63 mmHg Rhythm: NSR Stress Test Details HR Resting HR: 70 bpm Max Heart Rate (APMHR): 142.403176 bpm Target HR (85% APMHR): 120.058351 bpm Recovery HR: 90 bpm BP Resting BP: 137.0/63.0 mmHg Recovery BP: 148.0/71.0 mmHg ECG Resting ECG: NSR Stress ECG Conclusion During lexiscan pt experinced no symptoms. No arrhythmias noted. <1.5mm ST segment changes. Non diagnostic lexiscan stress. Electronically signed by : Leta Reese MD 11/21/2024 15:35:36
--- OUTSIDE RECORDS SUMMARY | 2024-11-19 06:33 | XMS_ITS | Continuity of Care Document ---
Author Organization [facility]. If a dditional information is needed, contact Health Information Management at [phone] Address [address] [place] [address] Phone Care Team Providers Care Die Forger Name Role Phone Unavailable Unavailable Unavailable Functional Status Functional finding 24-Dec-2019 Functional finding 24-Dec-2019 Functional finding 24-Dec-2019 Functional finding 24-Dec-2019 Functional finding 10-Dec-2019 Functional finding 10-Dec-2019 Functional finding 10-Dec-2019 Functional finding 10-Dec-2019 Allergies and Adverse Reactions No Known Allergies(Allergy) Onset: 28-Dec-2019 Medications omeprazole 20 mg capsule,del ayed release;20 MG ORAL Each Morning Start:24-Dec-2019 Comments:20 mg PO AM simvastatin 20 MG Oral Table t;20 MG ORAL QPM Start:10-Dec-2019 Status:Aborted Comments:20 mg PO QPM Tirosint;75 MCG ORAL Each Mo rning Start:10-Dec-2019 Comments:75 mcg PO AM
--- OUTSIDE RECORDS SUMMARY | 2024-11-19 06:35 | XMS_ITS | Data Portability ---
Author Organization [facility], [facility] [place] [facility] Address [address] [facility] [address] [place] [address] Care Team Providers Care Environmental Field Team Member Name Role Phone O JUD MEDINA Shank Boner JUDD FOOTE Primary Care Provider [phone] Assessment No assessment recorded. Plan of Treatment Reminders Order Date Submit Date Provider Last Modified By Organization Details Last Modified Time Details Appointments FOLLOW UP DAK 2024 09:50A M KASI KING PA-C Not available Not available Not available Lab surgical patholog y study 2024 04 025 [facility], [address] [place] [address], [place], [address], 08/17/2024 15:09:03 Referral None recorded . Procedures None recorded . Surgeries None recorded . Imaging None recorded . Medication Orders None recorded . Patient TargetsNo targets recorded. Patient Instructions Encounter Date Encounter Id Patient Instructions Last Modified By Organization Details Last Modified Time 08/13/2024 [id number] Pt's ~3 months ago. [email or web address] Not available 08/13/2024 12:21:58 Reason for Referral None Reported. 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 AJCC: T1, Nx, Mx SOURC E OF SPECI MEN: 1) SKIN, L SHOUL LACIE BLADE 2) SKIN, L POST SHOUL LACIE CLINI ALEXIS INFOR MATIO N: A: R/O: SUPRE FICIA L NMSC. ED&C. B: R/O: SUPRE FICIA L NMSC. ED&C. Gross Descr iptio n: A: The speci men consi sted of a singl e maldonado tissu e fragm ent which measu red 20 x 15 x 1 mm. Speci men is seria lly secti oned (x6). All is submi tted in two casse ttes. B: The speci men consi sted of a maldonado fragm ent which was trise cted and measu red 11 x 11 x 1 mm. All submi tted in one casse tte. Micro scopi c Descr iptio n: A: The epide rmis displ ays full thick ness kerat inocy te atypi a and disor ganiz ation . Invol vemen t of the dermi s is not noted . B: Super ficia l aggre mendez of basal oid cells are prese nt at the derma l-epi derma l junct ion. PRAVIN SEVILLA MD Sahra d Out Date: 08/17 15:08 1 Not Available [facility] [address] [facility], [place], [address], 08/17/2024 15:09:03 Result Notes None recorded. Procedures Surgical History Date Name Laterality Status Provider Name and Address Organization Details Recorded Time 5 DAK - Cryo AK completed Olive [place] [facility] 08/13/2024 09:58:01 5 Blade Biopsy w/ ED&C completed Olive Trino [facility] 08/13/2024 09:57:20 delivery completed Anaid Saleh [facility] 08/13/2024 09:32:26 Imaging Results None recorded. Procedure Notes None recorded. Medical Equipment None Reported. Allergies No known drug allergies Medications Name Sig Start Date Stop Date Status Note LastModified by Organization Details LastModified Time mupirocin 2 % topical ointment apply to affected area , 3 times daily for 10 days 2024 active Not Available Not Available Not Avai lable atorvastatin active Not Available Not Available Not Available levothyroxine active Not Available Not Available Not Available lisinopril active Not Available Not Av ailable Not Available Vitals None Recorded Social History Question Answer Notes LastModified by Organizat ion Details LastModified Time Tobacco Smoking Status Never [email or web address] 08/13/2024 09:32:15 What Was The Date Of Your Most Recent Tobacco Screening? 08/13/2024 [email or web address] Information not available 08/13/2024 Sex: Unknown Functional Status None recorded. Mental Status None recorded. Family History Relationship Description Onset Age of this Age Resolved Age Notes LastModified by Organization Details LastModified Time Sister Malignant neoplasm of skin [email or web address] Not available 08/13 09:31:54 Sister Malignant neoplasm of skin scc [email or web address] Not available 08/13 09:32:05 Medical History No medical history recorded. Gynecological HistoryNo gynecological history recorded. Obstetrics History GPAL:G 0 P 0 0 0 0 Past Encounters Encounter ID Performer Location Encounter Start Date Encounter Closed Date Diagnosis/Indication Diagnosis SNOMED-CT Code Diagnosis ICD10 Code Diagnosis Note [id number] MD OG SN[facility] [address] [place] [address],[place] [address] 08/13/2024 09:09:57 08/13/2024 10:28:58 Solar lentigo 91338953 L81.4 - Benign brown spots - Sun-induce d Multiple b enign melanocytic nevi 067266534 D22.5 - Benign appearing, reassuranc e - Counseled on importance of daily sun protection and self skin exams/jannette toring for ugly duckling lesions Senile angioma 3401429 I 78.1 - Benign blood vessel growths - Hereditary Seborrheic keratosis 394 875216 L82.1 - Benign overgrowth s of skin - Hereditary Actinic keratosis 592817 007 L57.0 -Precancer ous nature discussed -Will TX with LN2 today (see proc note) -FUP if sites persist after TX Neoplasm o f uncertain behavior of skin 65146897 D48.5 Location 1: L shoulder blade (ED&C) R/O superficia l NMSCLocati on 2: L posterior shoulder (ED&C) R/O superficia l NMSC - Bx performed today (see proc note(s) & surgical path order below for further detail, including location(s ) & DDX(s))- Wound care instructio ns reviewed/h andout provided- Will call with results & arrange tx as indicated at that time Health Concerns Section Related Observation LastModified by Organization Detai ls LastModified Time None Recorded Concern Status LastModified by Organization Details LastModified Time None Recorded Advance Directives Directive None Recorded Payers Insurance Date Sequence Insurance Name Policy Number Policy Sellers Covered Member ID Sellers Member ID Guarantor Name 10/31/2024 1 [employer] (MEDICARE REPLACEMENT/A DVANTAGE - PPO) Amaya Garcia [id number] Amaya Garcia Notes Date Note Type Note Provider Name and Address Organization Details Recorded Time 08/13/2024 text/html I am here for a skin check. spot on back. NEW PATIENT JUD MEDINA MD [address] [place], [address], [facility] 08/13/2024 12:22:14 OBGyn Episode No OBEpisode recorded.
--- OUTSIDE RECORDS SUMMARY | 2024-11-19 06:35 | XMS_ITS | Patient Health Record ---
Author Organization [facility] Address [address] [place] [address] [place] [address] Care Team Providers Care Machine Coil Assembler Name Role Phone John Tobar Primary Care Provider Veronique Ribera Unavailable [phone] Migration, Provider Unavailable Unavailable Allergies No Known Allergies Results Component Value Reference Range Notes DEXA Hip and Spine - Screeni ng Reviewed date:06/03/2024 10:21:41 AM Interpretation: Performing Lab: Notes/Report: M-Complete Blood Count Auto Diff Reviewed date:05/26/2024 01:35:46 PM Interpretation: Performing Lab: Notes/Report: WBC 8.3 4.8-10.8 K/mm3 RBC 4.44 4.20-5.40 M/mm3 HGB 13.5 12.2-16.2 g/dL HCT 41.7 37.0-47.0 % MCV 93.9 81-99 fl MCH 30.4 27.0-31.2 pg MCHC 32.4 31.8-35.4 g/dL RDW 13.4 11.5-17.5 % PLT 270 142-424 K/mm3 MPV 10.5 7.4-10.4 fl NE% 66.8 37.0-80.0 % LY% 24.7 10-50 % MO% 5.2 1.7-9.3 % EO% 2.5 0.1-12.0 % BA% 0.6 0.1-2.0 % NE# 5.6 1.8-7.8 K/mm3 LY# 2.1 0.7-4.5 K/mm3 MO# 0.4 0.1-1.0 K/mm3 EO# 0.2 0.0-0.4 K/mm3 BA# 0.1 0-0.2 K/mm3 M-Comprehensive Metabolic Pa paulette Reviewed date:05/29/2024 10:21:25 AM Interpretation: Performing Lab: Notes/Report: NA 141 136-145 mmol/L K 4.6 3.5-5.1 mmoL/L CL 106 98-107 mmol/L CO2 26 22.0-30.0 mmol/L GAP 13.6 5-15 mEq/L BUN 19 7-17 mg/dl CREATT 0.90 0.52-1.04 mg/dl GFRAA 73 >60 ML/MIN EGFR 61 >60 ml/min GLU 91 74-100 mg/dl CA 9.3 8.4-10.2 mg/dl BILIT 0.8 0.2-1.3 mg/dl AST 26 14-36 U/L ALT 30 12-78 U/L TP 6.8 6.3-8.2 g/dl ALB 4.4 3.5-5.0 g/dl GLOB 2.4 1.3-3.2 g/dL AGRATIO 1.8 1.1-1.8 ALP 83 38-126 U/L M-Lipid Panel Reviewed date:05/29/2024 10:21:26 AM Interpretation: Performing Lab: Notes/Report: Patient Fasting? Y TRIG 170 30-150 mg/dl CHOL 149 140-200 mg/dl DLDL 73.56 100-129 mg/dL VLDL 34 0-40 mg/dL HDL 38 40-60 mg/dl CHLHDL 3.9 1-3.5 M-Thyroid Stimulating Hormon e Reviewed date:05/26/2024 01:35:51 PM Interpretation: Performing Lab: Notes/Report: TSH 1.22 0.465-4.68 uIU/mL H-TVITD Reviewed date:05/26/2024 01:35:38 PM Interpretation: Performing Lab: Notes/Report: TVITD 36.3 30-100 ng/mL Deficient <20 ng/mL Insufficient 20-30 ng/mL Sufficient 30-100 ng/mL Potential Toxicity >100 ng/mL H-VITB12 Reviewed date:05/26/2024 01:35:34 PM Interpretation: Performing Lab: Notes/Report: VITB12 630 239-931 pg/mL Medications Medication SIG (Take, Route, Frequency, Duration) Notes Start Date End Date Status Losartan Potassium 50 MG 1 tablet Orally Once a day; Duration: 90 days 11/09/2024 Active Multivitamin 1 TAB ONCE A DAY *Please review and pick correct strength-formulati on from Zkatter options. If intended option is not shown, [...] TABLET EVERY DAY; Duration: 90 days Active Immunizations Vaccine Route Administration Date Status Comme nts Boostrix IM Intramuscular 10/18/2022 Administered Fluzone High Dose IM Intramuscular 01/30/2019 Administered Fluzone High Dose IM Intramuscular 02/10/2020 Administered Fluzone High Dose IM Intramuscular 12/30/2020 Administered Fluzone High Dose IM Intramuscular 01/26/2022 Administered Fluzone High Dose IM Intramuscular 02/25/2023 Administered Fluzone High Dose IM Intramuscular 12/30/2023 Administered Influenza (Fluzone)--Medicare only IM Intramuscular 02/07/2015 Administered Influenza (Fluzone)--Medicare only IM Intramuscular 04/13/2016 Administered Influenza-Fluzone 3+years (NON-MEDICARE) Unknown 02/17/2018 Administered Pneumovax 23 IM Intramuscular 04/13/2016 Administered Prevnar PCV-13 (Pneumococcal conjugate 13) IM Intramuscular 02/07/2015 Administered Prevnar PCV-20 (Pneumococcal conjugate 20) IM Intramuscular 02/26/2024 Administered RSV Unknown 02/25/2023 Administered SHINGRIX Unknown 04/04/2021 Administered SHINGRIX Unknown 07/12/2021 Administered Problems Problem Type SNOMED Code ICD Code Onset Dates Problem Status W/U Status Risk Notes Problem Overweight (825057491) Overweight (E66.3) Active confirmed Problem Mixed hyperlipidemia (776019778) Mixed hyperlipidemia (E78.2) Active confirmed Problem Vitamin B12 deficiency (695199614) Vitamin B12 deficiency (E53.8) Active confirmed Problem Hypothyroidism (90486161) Hypothyroidism (acquired) (E03.9) Active confirmed Problem Vitamin D deficiency (20306026) Vitamin D deficiency (E55.9) Active confirmed Problem Gastroesophageal reflux disease (298666735) GERD without esophagitis (K21.9) Active confirmed Problem Essential hypertension (85950102) Hypertension, essential (I10) Active confirmed Problem Body mass index 30+ - obesity (693969190) BMI 30.0-30.9,adult (Z68.30) Active confirmed Problem Seasonal allergic rhinitis (793823595) Acute seasonal allergic rhinitis (J30.2) Active confirmed Problem Grief (904489506) Grief (F43.21) Active confirm ed Vital Signs Heart Rate 86 /min 11/09/2024 Temperature 98.1 degrees Fahrenheit 11/09/2024 Blood pressure diastolic 74 mm Hg 11/09/2024 Height 5 ft 6 in in 11/09/2024 Blood pressure systolic 128 mm Hg 11/09/2024 Weight 185.2 lbs 11/09/2024 BMI 29.89 kg/m2 11/09/2024 Encounters Encounter Location Date Provider Diagnosis [facility] [address] [place] [address] 08/08/2024 Provider Migration GERD without esophagitis K21.9 and Vitamin B12 deficiency E53.8 [facility] [address] [place] [address] 12/30/2023 John Tobar Immunization(s) administered Z23 [facility] [address] [facility] [address] [place] [address] 02/26/2024 John Tobar Encounter for immunization Z23 [facility] [address] [facility] [address] [place] [address] 05/25/2024 Veronique Ribera Hypertension, essential I10 ; Medicare annual wellness visit, subsequent Z00.00 ; Mixed hyperlipidemia E78.2 ; Hypothyroidism (acquired) E03.9 ; Vitamin B12 deficiency E53.8 ; Vitamin D deficiency E55.9 ; GERD without esophagitis K21.9 ; Overweight E66.3 ; Body mass index [BMI] 28.0-28.9, adult Z68.28 ; Back skin lesion L98.9 ; Nocturnal cough R05.8 ; Grief F43.21 and Asymptomatic postmenopausal state Z78.0 [facility] [address] [place] [address] 11/09/2024 Veronique Ribera NORMAN (dyspnea on exertion) R06.09 ; Acute seasonal allergic rhinitis J30.2 ; Persistent cough R05.3 ; Hypertension, essential I10 and Mixed hyperlipidemia E78.2 [facility] [address] [address] 12/18/2023 Veronique Ribera [facility] [address] [facility] [address] [place] [address] 03/24/2024 John Besson [facility] [address] [address] 08/05/2024 John Besson GERD without esophagitis K21.9 [facility] [address] [address] 08/17/2024 John Besson [facility] [address] [address] 10/07/2024 John Besson Assessments Encounter Date Diagnosis (ICD Code) Assessment Notes Treatment Notes Treatment Clinical Notes Section Notes 05/25/2024 Hypertension, essential (ICD-10 - I10) Blood pressure well controlled. Continue lisinopril. 05/25/2024 Medicare annual wellness visit, subsequent (ICD-10 - Z00.00) Well Visit, Over 65: Care Instructions material was published 08/05/2024 GERD without esophagitis (ICD-10 - K21.9) 08/08/2024 GERD without esophagitis (ICD-10 - K21.9) 11/09/2024 NORMAN (dyspnea on exertion) (ICD-10 - R06.09) EKG today is unremarkable but given her symptoms and risk factors including age, hypertension, hyperlipidemia would recommend additional testing with echo and chemical stress test. Follow-up based on those results 11/09/2024 Acute seasonal allergic rhinitis (ICD-10 - J30.2) 02/26/2024 Encounter for immunization (ICD-10 - Z23) 12/30/2023 Immunization(s) administered (ICD-10 - Z23) 11/09/2024 Persistent cough (ICD-10 - R05.3) stop lisinopril and start losartan as noted 05/25/2024 Mixed hyperlipidemia (ICD-10 - E78.2) LDL still well controlled, discussed dietary avoidance and increased activity to help lower triglycerides and improve HDL cholesterol 05/25/2024 Hypothyroidism (acquired) (ICD-10 - E03.9) Well-controlled on current dose, no changes 11/09/2024 Hypertension, essential (ICD-10 - I10) 11/09/2024 Mixed hyperlipidemia (ICD-10 - E78.2) 08/08/2024 Vitamin B12 deficiency (ICD-10 - E53.8) 05/25/2024 Vitamin B12 deficiency (ICD-10 - E53.8) 05/25/2024 Vitamin D deficiency (ICD-10 - E55.9) Also improved on oral supplement, continue 05/25/2024 GERD without esophagitis (ICD-10 - K21.9) Continue PPI. If symptoms recur would recommend EGD 05/25/2024 Overweight (ICD-10 - E66.3) BMI improved. Encouraged healthy diet and regular exercise 05/25/2024 Body mass index [BMI] 28.0-28.9, adult (ICD-10 - Z68.28) 05/25/2024 Back skin lesion (ICD-10 - L98.9) concerning for either BCC or SCC, discussed options for dermatology and she will schedule appt. 05/25/2024 Nocturnal cough (ICD-10 - R05.8) Discussed that this could be allergic in nature or possibly her acid reflux. She will resume her Zyrtec and monitor symptoms 05/25/2024 Grief (ICD-10 - F43.21) Discussed the possibility of bereavement counseling. Also discussed indications for medications. She feels like she is doing well currently. Return precautions reviewed 05/25/2024 Asymptomatic postmenopausal state (ICD-10 - Z78.0) Plan Of Treatment Pending Test Test Name Order Date Ultrasound : Carotids 07/02/2011 MRI : Shoulder, Right 08/15/2009 MRI : Cervical Spine 07/02/2011 DEXA Hip and Spine - Screening 8 DEXA Hip and Spine - Screening 4 EKG : In House 07/02/2011 EKG : In House 11/09/2024 EKG : In House 12/19/2009 Echocardiogram 11/09/2024 MRI : Head, With and Without Contrast Holter Monitor : Event Recorder 07/02/19 12 Physical Therapy 03/21/2021 Physical Therapy 08/18/2009 Cardiolite GXT 11/09/2024 H-CBC with AUTO DIFF 03/06/2010 H-CBC with AUTO DIFF 07/02/2011 H-CBC with AUTO DIFF 07/28/2013 H-VITAMIN B12 07/02/2011 H-VITAMIN B12 03/06/2010 H-VITAMIN B12 12/13/2016 H-VITAMIN B12 04/25/2015 H-PT/INR 07/02/2011 H-BMP 03/06/2010 H-CMP 07/28/2013 H-CMP 07/02/2011 H-CMP 11/14/2011 H-LIPID PANEL 07/28/2013 H-LIPID PANEL 07/02/2011 H-TSH 07/28/2013 H-TSH 07/02/2011 H-FREE T3 07/28/2013 H-FREE T3 12/13/2016 H-FREE T4 07/28/2013 H-HELICOBACTER PYLORI IGM AB 07/26/2008 H-URINALYSIS 07/02/2011 H-URINE 24 HOUR FOR PROTEIN 09/11/2010 H-CREATININE CLEARANCE 24HR UA 1 spirometry 12/19/2009 M-Complete Blood Count Auto Diff 023 M-Complete Blood Count Auto Diff 020 M-Comprehensive Metabolic Panel 12/02/19 M-Comprehensive Metabolic Panel 02/19/20 M-Lipid Panel 02/18/2023 M-Lipid Panel 12/02/2019 M-Free T4 (Free Thyroxine) 02/18/2023 M-Thyroid Stimulating Hormone 12/02/2019 M-Thyroid Stimulating Hormone 02/18/2023 M-Vitamin B12 02/18/2023 M-Vitamin B12 06/28/2020 M-Vitamin B12 10/18/2022 M-Vitamin B12 12/02/2019 M-Vitamin B12 05/25/2024 M-Vitamin D 25 Hydroxy 05/25/2024 M-Vitamin D 25 Hydroxy 10/18/2022 M-Vitamin D 25 Hydroxy 02/18/2023 Insurance Providers Payer Name Payer Address Payer Phone Subscriber Number Group Number Insured Name Patient Relationship to Insured Coverage Start Date Coverage End Date [employer] MEDICARE [address] [address] [place] [address] [id number] Amaya Montague Self - patient is the insured Medical (General) History Medical History History ICD Code Hypertension allergies GERD vitamin b12 deficiency fx left ankle Renal insufficiency syndrome NOS 2008 Normal Colonoscopy, Dr Lorenz Hyperlipidemia 2016 EGD with mild chronic g astritis, repeated 02/22 with gastritis- colonoscopy normal normal mammogram 10/27 Surgical History Surgery Date(Month/Year) 1977 stereotatic bx x 2 rt 5th toe surgery rt 4th toe surgery 2009 cataract surgery-rt eye 12/2019 cataract surgery- left eye 01/2020 Hospitalization History Reason Date(Month/Year) above
--- NOTE | 2024-11-19 06:36 | NM_ITS ---
APPROVED REPORT Exam: Nuclear Stress Test Indication: soa..palpiatitons..fatigue Patient Location: Outpatient Stress Tech: Michelle MARCH Tech:Mehreen Foster TYLER RT(R)(N) Ht: 5 ft 6 in Wt: 180 lbs Bra Size: 38c HR: 66 bpm BP: 137/63 mmHg BSA: 1.91 m2 TID: 1.32 BMI: 29.0 History: soa..palpiatitons..fatigue Procedure: Patient received 0.4 mg of intravenous Lexiscan, resting heart rate 66 bpm, resting blood pressure 137/63 mmHg, with Lexiscan maximum heart rate achieved was 108 bpm which is 85 % of the maximum predicted heart rate and blood pressure was 124/70 mmHg. With Lexiscan, patient denied any complaint of chest pain. Cardiac Stress and Resting SPECT Images: Cardiac Stress and Resting SPECT images were obtained using technetium 99m Myoview 31.4 mCi stress and 10.05 mCi at rest. Resting and stress imaging in supine and prone positions demonstrate no evidence of fixed or reversible perfusion defects. There is increase in transient ischemic dilatation ratio (TID 1.32), which may be suggestive of possible multivessel disease or balanced ischemia. Gated imaging demonstrates normal global and regional LV systolic function. LVEF is calculated at 70%. Conclusion: No evidence of fixed or reversible perfusion defects. There is increase in transient ischemic dilatation ratio (TID 1.32), which may be suggestive of possible multivessel disease or balanced ischemia. Gated imaging demonstrates normal global and regional LV systolic function. LVEF is calculated at 70%. Electronically signed by : Leta Reese MD 11/21/2024 15:28:28
[2024-11-19] MEDS: SODIUM CHLORIDE 0.9% 10ML SYR (RAD ONLY) 10 ML IV ×2 (08:44)
[2024-11-19] MEDS: ISOTOPE MYOVIEW (PER STUDY) 1 DOSE IV (08:44)
== END 2024-11-19 23:59 | disposition home or self-care (01) ==
LOC: RAD 06:33
PROVIDERS: PCP Internal Medicine Adolescent Medicine; Visit Provider Nurse Practitioner Family
DX: I08.1 Rheumatic disorders of both mitral and tricuspid valves (principal); E78.2 Mixed hyperlipidemia; I10 Essential (primary) hypertension; R94.39 Abnormal result of other cardiovascular function study; R00.2 Palpitations; R94.31 Abnormal electrocardiogram [ECG] [EKG]
CPT/HCPCS: 78452; 93016; 93017; 93018; 93306; A9502; J2785

== ENCOUNTER 2024-11-27 09:38 | Outpatient (CLI) | payer MEDICARE, OTHER, SELFPAY ==
--- OUTSIDE RECORDS SUMMARY | 2024-11-09 06:30 | XMS_ITS ---
Author Organization [facility] PE D VIRGEN Address [address] [facility] [address] [place] [address] Care Team Providers Care Social Worker Clinical Name Role Phone John Tobar Primary Care Provider Veronique Ribera Unavailable [phone] Allergies No Known Allergies Results Component Value Reference Range Notes Echocardiogram Reviewed date:11/25/2024 05:58:18 PM Interpretation: Performing Lab: Notes/Report: Cardiolite GXT Reviewed date:11/26/2024 09:59:01 AM Interpretation: Performing Lab: Notes/Report: Reason For Referral Reason Cardiolyte GXT Ech o Diagnosis 1 NORMAN (dyspnea on exer tion) (R06.09) Referral Organization [facility] MARY JULIAN Referring Provider First Name Veronique Referring Provider Last Name Mounika Referring Provider Speciality Family Pra ctice Referred Organization [facility] Referred Address [address] [facility] [place], Referred Provider Specialty Diagnostic R adiology General Notes Bhavani White 2024 04:08:39 PM >Orders sent to [facility] to schedule appt with [facility] Referral Priority Routine REASON FOR VISIT Fatigue and out of breath- Possible Stress Test Medications Medication SIG (Take, Route, Frequency, Duration) Notes Start Date End Date Status Losartan Potassium 50 MG 1 tablet Orally Once a day; Duration: 90 days 11/09/2024 Active Omeprazole 40 MG 1 cap(s) orally once a day; Duration: 90 days Active Atorvastatin Calcium 20 MG 1 tab(s) orally once a day; Duration: 90 days Active Levothyroxine Sodium 75 MCG TAKE 1 TABLET EVERY DAY; Duration: 90 days Active Multivitamin 1 TAB ONCE A DAY *Please review and pick correct strength-formulati on from [employer] options. If intended option is not shown, discontinue and re-order from Quick Search* Active Levocetirizine Dihydrochloride 5 MG 1 tablet in the evening Orally Once a day; Duration: 90 days 11/09/2024 Active Problems Problem Type SNOMED Code ICD Code Onset Dates Problem Status W/U Status Risk Notes Problem Acute seasonal allergic rhinitis (J30.2) Active confirmed Vital Signs Temperature 98.1 degrees Fahrenheit 11/10/19 25 Blood pressure systolic 128 mm Hg 11/10/19 25 Blood pressure diastolic 74 mm Hg 025 Heart Rate 86 /min 11/09/2024 Height 5 ft 6 in in 11/09/2024 Weight 185.2 lbs 11/09/2024 BMI 29.89 kg/m2 11/09/2024 Encounters Encounter Location Date Provider Diagnosis [facility] VIRGEN [address] [facility] [address] [place] [address] 11/09/2024 Veronique Ribera NORMAN (dyspnea on exertion) R06.09 ; Acute seasonal allergic rhinitis J30.2 ; Persistent cough R05.3 ; Hypertension, essential I10 and Mixed hyperlipidemia E78.2 Assessments Encounter Date Diagnosis (ICD Code) Assessment Notes Treatment Notes Treatment Clinical Notes Section Notes 11/09/2024 NORMAN (dyspnea on exertion) (ICD-10 - R06.09) EKG today is unremarkable but given her symptoms and risk factors including age, hypertension, hyperlipidemia would recommend additional testing with echo and chemical stress test. Follow-up based on those results 11/09/2024 Acute seasonal allergic rhinitis (ICD-10 - J30.2) 11/09/2024 Persistent cough (ICD-10 - R05.3) stop lisinopril and start losartan as noted 11/09/2024 Hypertension, essential (ICD-10 - I10) 11/09/2024 Mixed hyperlipidemia (ICD-10 - E78.2) Plan Of Treatment Medication Medication Name Sig Start Date Stop Date Notes Losartan Potassium 50 MG 1 tablet Orally Once a day; Duration: 90 days 11/09/2024 Lisinopril 20 MG 1 tab(s) orally once a day Cetirizine HCl 10 MG 1 tab(s) orally onc e a day prn Levocetirizine Dihydrochlori de 5 MG 1 tablet in the evening Orally Once a day; Duration: 90 days 11/09/2024 Pending Test Test Name Order Date EKG : In House 11/09/2024 Referrals Referral Date Details 11/09/2024 11/09/2024, Cardioly te GXT Echo, [address] [facility], [place], [address], Next Appt Details Follow Up: pending results, Reason: Progress Notes * Amaya GARCIADOB:1945 (79 yo F)Acc No.[id number]:11/09/2024 Progress Notes Patient: Amaya ARGUELLO Provider: MORIAH Jon :1945 A ge:79 Y S ex:Female Date:11/09/2024 Address:[address] [place], [id number] Pcp:John Tobar Subjective: * Chief Complaints: * 1 . Fatigue and out of breath- Possible Stress Test. * HPI: C ardiology: 79-year-old female with history of mild hypertension and hyperlipidemia presents today with complaints of shortness of breath, poor activity tolerance and some intermittent dizziness. These have been present and increasing in frequency over the past few months and more notable recently during her vacation with family.Additionally notes a dry cough that is present intermittently during the day but seems to be worse at night. Some seasonal allergy symptoms despite taking cetirizine routinely. 79 year old female presents with c/o shortness of breath. c/o dizziness w ith position changes, occasional, brief. c/o fatigue. Denies : chest pain. D enies : palpitations. D enies : leg edema. D enies : cyanosis. D enies : diaphoresis. * ROS: R ESPIRATORY: See HPI Y es. C ARDIOLOGY: See HPI Y es. C ONSTITUTIONAL: See HPI Y es. G ASTROENTEROLOGY: Reviewed, No Symptoms Reported: Y es. U ROLOGY: Reviewed, No Symptoms Reported: Y es. * Medical History: H ypertension, Allergies, GERD, Vitamin b12 deficiency, Fx left ankle, Renal insufficiency syndrome NOS, 2009 Normal Colonoscopy, Dr Lorenz, Hyperlipidemia, 2017 EGD with mild chronic gastritis, repeated 02/22 with gastritis- colonoscopy normal, Normal mammogram 10/27. * Surgical History: C -section 1977, stereotatic bx x 2 , rt 5th toe surgery , rt 4th toe surgery 2009, cataract surgery-rt eye 12/2019, cataract surgery- left eye 01/2020. * Hospitalization/Major Diagno stic Procedure: anh perrin . * Family History: F ather: , stroke. M other: , Parkinson. P aternal Grand Father: , [place]. P aternal Grand Mother: , [place]. M aternal Grand Father: , Stroke. Maternal Grand Mother: , [place]. P aternal uncle: . P aternal aunt: alive, Stroke 1 Aunt, Cancer. M aternal uncle: , heart disease, stroke. M aternal aunt: alive, Heart Disease, Cancer. S iblings: alive, Gallbladder Cancer, Cancer 1 Brother from Cancersister-alzheimer's. C hildren: alive. 1 brother(s) , 4 sister(s) . 1 son(s) , 2 daughter(s) - healthy. . * Social History: S moking: no A re you a:: nonsmoker. R ecreational drug use: no. Exercise: no. Home smoke detector use: yes. Caffeine: yes, frequency:1- 2 cups of coffee. Living Will: No, discussed wishes with children and spouse but wishes not to do formal living will. Alcohol: no. Sexually active: yes. Travel outside [place]: no. 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 * Medications: T aking Multivitamin 1 TAB ONCE A DAY , Notes to Pharmacist: *Please review and pick correct strength-formulation from [employer] options. If intended option is not shown, discontinue and re-order from Quick Search*, Taking Omeprazole 40 MG Capsule Delayed Release 1 cap(s) orally once a day , Taking Cetirizine HCl 10 MG Tablet 1 tab(s) orally once a day prn , Taking Atorvastatin Calcium 20 MG Tablet 1 tab(s) orally once a day , Taking Levothyroxine Sodium 75 MCG Tablet TAKE 1 TABLET EVERY DAY , Taking Lisinopril 20 MG Tablet 1 tab(s) orally once a day , Discontinued 3CC SYRINGES AND 23 GAUGE NEEDLES USE MONTHLY FOR B12 INJECTIONS , Notes to Pharmacist: *Please review for potential replacement for e-prescription and drug interaction check*, Discontinued Cyanocobalamin 1000 MCG/ML Solution 1000 mcg intramuscularly once a month , Medication List reviewed and reconciled with the patient * Allergies: N .K.D.A. Objective: * Vitals: N urse: KJ, Pain: 6-hamstring, Temp: 98.1, RR: 18, HR: 86, BP: 128/74, Ht: 5 ft 6 in, Wt: 185.2, BMI:29.89. * Examination: G eneral Examination: General P leasant and Cooperative, NAD on RA,. Heart: R egular Rate and Rhythm, no murmur, rubs or gallops. Lungs: c lear to auscultation,. Abdomen: s oft, NT/ND, BS present. Neurologic Exam: A lert and oriented x 3. neck s upple,, no thyromegaly,, no lymphadenopathy,, No Carotid Bruit,. Psych N ormal Mood/Affect. Assessment: * Assessment: 1. D OE (dyspnea on exertion) - R06.09 (Primary) 2 . A cute seasonal allergic rhinitis - J30.2 3 . P ersistent cough - R05.3 4 . H ypertension, essential - I10 5 . M ixed hyperlipidemia - E78.2 Plan: * Treatment: ?Imaging: Echocardiogram* Bhavani White 11/09/2024 02: 49:00 PM EDT > Authorization #[id number] - Tracking #[id number] [facility] [id number] [facility] exp 12-11-24Andrew grossman 11/25/2024 04:25:37 PM EDT >This DI was reviewed by Veronique Ribera on 11/25/2024 at 17:58 PM EDT * ?Imaging: Cardiolite GXT* Bhavani White 11/09/2024 02: 48:11 PM EDT > No Auth Required per Andrew Morton 11/23/2024 12:46:10 PM EDT >Nabil Martin 11/24/2024 04:27:14 PM EDT > Pt called in and said she could not understand the VM. Please call her again.This DI was reviewed by Bhavani White on 11/26/2024 at 09:59 AM EDT * Clinical Notes: EKG today is unremarkable but given her symptoms and risk factors including age, hypertension, hyperlipidemia would recommend additional testing with echo and chemical stress test. Follow-up based on those results? Referral To: ?Reason:Cardiolyte GXT Echo 2.?Acute seasonal allergic rhinitis? Stop Cetirizine HCl Tablet, 10 MG, 1 tab(s), orally, once a day prn;?Start Levocetirizine Dihydrochloride Tablet, 5 MG, 1 tablet in the evening, Orally, Once a day, 90 days, 90 Tablet, Refills 1.??3.?Persistent cough? Clinical Notes: stop lisinopril and start losartan as noted??4.?Hypertension, essential? Stop Lisinopril Tablet, 20 MG, 1 tab(s), orally, once a day;?Start Losartan Potassium Tablet, 50 MG, 1 tablet, Orally, Once a day, 90 days, 90 Tablet, Refills 1.?Imaging: Echocardiogram* Bhavani White 11/09/2024 02: 49:00 PM EDT > Authorization #[id number] - Tracking #[id number] [facility] [id number] [facility] exp 88Andrew grossman 11/25/2024 04:25:37 PM EDT >This DI was reviewed by Veronique Ribera on 11/25/2024 at 17:58 PM EDT * ?Imaging: Cardiolite GXT* Bhavani White 11/09/2024 02: 48:11 PM EDT > No Auth Required per Andrew Morton 11/23/2024 12:46:10 PM EDT >Nabil Martin 11/24/2024 04:27:14 PM EDT > Pt called in and said she could not understand the VM. Please call her again.This DI was reviewed by Bhavani White on 11/26/2024 at 09:59 AM EDT * 5.?Mixed hyperlipidemia?Imaging: Echocardiogram* Bhavani White 11/09/2024 02: 49:00 PM EDT > Authorization #[id number] - Tracking #[id number] [facility] [id number] [facility] exp 12-11-24Andrew Bruno R 11/25/2024 04:25:37 PM EDT >This DI was reviewed by Veronique Ribera on 11/25/2024 at 17:58 PM EDT * ?Imaging: Cardiolite GXT* Bhavani White 11/09/2024 02: 48:11 PM EDT > No Auth Required per SeleneAndrew R 11/23/2024 12:46:10 PM EDT >Nabil Martin 11/24/2024 04:27:14 PM EDT > Pt called in and said she could not understand the VM. Please call her again.This DI was reviewed by Bhavani White on 11/26/2024 at 09:59 AM EDT * * Procedure Codes: 9 3000 EKG WITH INTERP. * Follow Up: p ending results * * Sign off status: Completed true * Provider: MORIAH Jon Date: 11/09/2024 Generated for Josue ly/Bhumi/Virgen on: 11/27/2024 09:41 AM EDT History and Physical Notes * HPI (History of Present Illness) Category Sub-Category Detail Notes Category Not es Cardiology shortness of breath chest pain palpitations dizziness with position change s, occasional, brief leg edema fatigue cyanosis diaphoresis Examination Category Sub-Category Detail Notes Category Not es General Examination Heart: Regular Rate and Rhythm, no murmur, rubs or gallops Lungs: clear to auscultatio n, Abdomen: soft, NT/ND, BS pres ent Neurologic Exam: Alert and oriented x 3 neck supple,, no thyromeg brett,, no lymphadenopathy,, No Carotid Bruit, General Pleasant and Coopera tive, NAD on RA, Psych Normal Mood/Affect Consultation Request Notes Referral Date Referring Provider Referred Provider Not es 11/09/2024 Veronique Ribera [facility] X[facility] Echo
--- OUTSIDE RECORDS SUMMARY | 2024-11-20 10:01 | XMS_ITS | Encounter Summary ---
[facility] Address [address] [place] [address] Care Team Providers Care Plastics Supervisor Name Role Phone John Tobar MD Primary Care Provider [phone] Reason for Referral * Diagnostic Imaging (Routine) - Closed Specialty Diagnoses / Procedures Referred By Walter little Referred To Contact Radiology Diagnoses Visit for screening mammogram Procedures Mammo Screening Digital Tomosynthesis Bilateral With CAD John Tobar MD [facility] [place] [address] [facility] [address] [place] [address] Phone: tel: fax: Referral ID Status Reason Start Date Expiration Date Visits Re quested Visits Authorized [id number] Closed 09/08/2024 12/08/2025 1 1 Reason for Visit * Diagnostic Imaging (Routine) - Closed Specialty Diagnoses / Procedures Referred By Walter little Referred To Contact Radiology Diagnoses Visit for screening mammogram Procedures Mammo Screening Digital Tomosynthesis Bilateral With CAD John Tobar MD [facility] [address] [place] [address] Phone: tel: fax: Referral ID Status Reason Start Date Expiration Date Visits Re quested Visits Authorized [id number] Closed 09/08/2024 12/08/2025 1 1 Encounter Details Date Type Department Care Team (Latest Contact Info) Description 11/20/2024 10:01 AM EDT - 11/20/2024 11:59 PM EDT Hospital Encounter [facility] [address] [place] [address] John Tobar MD [address] [facility] [address] [address] Visit for screening mammogram Discharge Disposition: Home [...] mammogram documented in this encounter Care Teams Plastics Supervisor Relationship Specialty Start Date End Date John Tobar MD [address] [facility] [address] [facility] [address] [place] [address] PCP - General 01/17/15 documented as of this encounter
--- OUTSIDE RECORDS SUMMARY | 2024-11-25 13:54 | XMS_ITS ---
Author Organization [facility] Address [address] [place] [address] Care Team Providers Care Ambulance Mechanic Name Role Phone John Tobar Primary Care Provider MounikaVeronique cuba Unavailable [phone] Encounters Encounter Location Date Provider Diagnosis [facility] [address] [place], [place] [address] 11/25/2024 Veronique Ribera Posterior left knee pain M25.562 Assessments Encounter Date Diagnosis (ICD Code) Assessment Notes Treatment Notes Treatment Clinical Notes Section Notes 11/25/2024 Posterior left knee pain (ICD-10 - M25.562) Plan Of Treatment Pending Test Test Name Order Date X ray : Knee, Right 11/25/2024 Progress Notes * Amaya GARCIADOB:1945 (79 yo F)Acc No.[id number]:11/25/2024 Patient: Amaya ARGUELLO :1945 A ge:79 Y S ex:Female Address:[place] [address] Subjective: * Chief Complaints: * * Medical History: * Surgical History: * Hospitalization/Major Diagno stic Procedure: * Medications: Objective: * Vitals: * Physical Examination: Assessment: * Assessment: 1. P osterior left knee pain - M25.562 (Primary) Plan: * Treatment: * Procedure Codes: * true * Date: Generated for Josue ly/Bhumi/Virgen on: 0 11/27/2024 09:42 AM EDT
--- OUTSIDE RECORDS SUMMARY | 2024-11-26 05:40 | XMS_ITS ---
Author Organization [facility] Address [address] [place] [address] Care Team Providers Care Community Development Technician Name Role Phone John Tobar Primary Care Provider Veronique Ribera Unavailable [phone] Encounters Encounter Location Date Provider Diagnosis [facility] [address] [place], [place] [address] 11/26/2024 Veronique Ribera Shortness of breath R06.02 and Abnormal stress test R94.39 Assessments Encounter Date Diagnosis (ICD Code) Assessment Notes Treatment Notes Treatment Clinical Notes Section Notes 11/26/2024 Shortness of breath (ICD-10 - R06.02) 11/26/2024 Abnormal stress test (ICD-10 - R94.39) Plan Of Treatment Pending Test Test Name Order Date CTA : Cardiac 11/26/2024 Progress Notes * Amaya GARCIADOB:1945 (79 yo F)Acc No.[id number]:11/26/2024 Patient: Amaya ARGUELLO :1945 A ge:79 Y S ex:Female Address:[place] [address] Subjective: * Chief Complaints: * * Medical History: * Surgical History: * Hospitalization/Major Diagno stic Procedure: * Medications: Objective: * Vitals: * Physical Examination: Assessment: * Assessment: 1. S hortness of breath - R06.02 2 . A bnormal stress test - R94.39 ? Plan: * Treatment: * 2.?Abnormal stress test?Imaging: CTA : Cardiac* Bhavani White 11/26/2024 09: 48:18 AM EDT > Auth # [id number] exp 01/25/25 [facility] [id number] [facility] * * Procedure Codes: * true * Date: Generated for Josue ly/Bhumi/Virgen on: 0 11/27/2024 09:42 AM EDT
--- OUTSIDE RECORDS SUMMARY | 2024-11-27 09:41 | XMS_ITS | Data Portability ---
Author Organization [facility] [place] [facility] Address [address] [facility] [place] [address] Care Team Providers Care Galley Cook Name Role Phone O JUD MEDINA Filling Hauler Weaving JUDD FOOTE Primary Care Provider Assessment No assessment recorded. Plan of Treatment Reminders Order Date Submit Date Provider Last Modified By Organization Details Last Modified Time Details Appointments FOLLOW UP DAK 2024 09:50A M KASI KING PA-C Not available Not available Not available Lab surgical patholog y study 2024 04 025 [facility], [address] [place] [address], [place], [address], 08/17/2024 15:09:03 Referral None recorded . Procedures None recorded . Surgeries None recorded . Imaging None recorded . Medication Orders None recorded . Patient TargetsNo targets recorded. Patient Instructions Encounter Date Encounter Id Patient Instructions Last Modified By Organization Details Last Modified Time 08/13/2024 [id number] Pt's ~3 months ago. [email or web address] Not available 08/13/2024 12:21:58 Reason for Referral None Reported. Results Created Date Observation Date Name Description Value Unit Range Abnormal Flag Note LastModifiedBy Organization Detail LastModifiedTime 08/14/1908/13/2024 SURGI ALEXIS surgical SEE BELOW abnormal Crest topat holog y Repor t NAME: ELAINE [...] Out Date: 08/17 15:08 1 Not Available [facility] [address] [facility], [place], [address], 08/17/2024 15:09:03 Result Notes None recorded. Procedures Surgical History Date Name Laterality Status Provider Name and Address Organization Details Recorded Time 5 DAK - Cryo [place] completed Olive [place] [facility] 08/13/2024 09:58:01 5 Blade Biopsy w/ ED&C completed Olive Trino [facility] 08/13/2024 09:57:20 delivery completed Anaid Saleh [facility] 08/13/2024 09:32:26 Imaging Results None recorded. Procedure [...] Tobacco Smoking Status Never Sm[facility]/13/[facility] 09:32:15 What Was The Date Of Your Most Recent Tobacco Screening? 08/13/2024 [email or web address] Information not available 08/13/2024 Sex: Unknown Functional Status None recorded. Mental Status None recorded. Family History Relationship Description Onset Age of this Age Resolved Age Notes LastModified by Organization Details LastModified Time Sister Malignant neoplasm of skin [email or web address] Not available 08/13 09:31:54 Sister Malignant neoplasm of skin scc [email or web address] Not available 08/13 09:32:05 Medical History No medical history recorded. Gynecological HistoryNo gynecological history recorded. Obstetrics History GPAL:G 0 P 0 0 0 0 Past Encounters Encounter ID Performer Location Encounter Start Date Encounter Closed Date Diagnosis/Indication Diagnosis SNOMED-CT Code Diagnosis ICD10 Code Diagnosis Note [id number] MD [facility] [address] [place] [address],[place] [address] 08/13/2024 09:09:57 08/13/2024 10:28:58 Solar lentigo 45414535 L81.4 - Benign brown spots - Sun-induce d Multiple b enign melanocytic nevi [id number] D22.5 - Benign appearing, reassuranc e - Counseled on importance of daily sun protection and self skin exams/jannette toring for ugly duckling lesions Senile angioma 6074537 I 78.1 - Benign blood vessel growths - Hereditary Seborrheic keratosis 394 033574 L82.1 - Benign overgrowth s of skin - Hereditary Actinic keratosis 188048 007 L57.0 -Precancer ous nature discussed -Will TX with LN2 today (see proc note) -FUP if sites persist after TX Neoplasm o f uncertain behavior of skin 54900489 D48.5 Location 1: L shoulder blade (ED&C) [...] (MEDICARE REPLACEMENT/A DVANTAGE - PPO) Amaya Garcia [id number] Amaya Garcia Notes Date Note Type Note Provider Name and Address Organization Details Recorded Time 08/13/2024 text/html I am here for a skin check. spot on back. NEW PATIENT JUD MEDINA MD [address] [place], [address], [facility] 08/13/2024 12:22:14 OBGyn Episode No OBEpisode recorded.
--- OUTSIDE RECORDS SUMMARY | 2024-11-27 09:42 | XMS_ITS | Clinical Summary ---
Author Organization [facility] Address [address] [place] [address] Care Team Providers Care Sports Administrator Name Role Phone John Tobar MD Primary Care Provider Encounters Date Type Department Care Team Description 11/20/2024 10:01 AM EDT - 11/20/2024 11:59 PM EDT Hospital Encounter [address] [address] John Tobar MD Visit for screening mammogram Discharge Disposition: Home or Self Care 11/20/2024 Travel from Last 3 Months Family History Medical History Relation Name Comments Breast cancer Cousin 1ST MAT Breast cancer Maternal Aunt Ovarian cancer Neg Hx Relation Name Status Comments Cousin 1ST MAT Maternal Aunt Social History Tobacco Use Types Packs/Day Years Used Date Smoking Tobacco: Never Assessed Comments No Sex and Gender Information Value Date Recorded Sex Assigned at Female 11/13/2024 8:39 AM EDT Legal Sex Female 10:49 AM EDT Gender Identity Not on file Sexual Orientation Straight 11/13/2024 8: 39 AM EDT Plan of Treatment Health Maintenance Due Date Last Done Comments ANNUAL WELLNESS VISIT 1945 DXA SCAN 1945 HEPATITIS C SCREENING 1945 RSV Vaccine - Adults (1 - 1- dose 75+ series) 2021 COVID-19 Vaccine (2023-2 5 season) 2024 04/04/2022, 11/28/2021, 02/15/2021, Additional history exists INFLUENZA VACCINE 02/03/2025 12/30/2023, , 01/26/2022, Additional history exists TDAP/TD VACCINES (2 - Td or Tdap) 10/18/2032 023 ZOSTER VACCINE Completed 07/12/2021, 04/04/2021 Pneumococcal Vaccine 50+ Completed 02/26/2024 MAMMOGRAM Discontinued 11/20/2024, 11/2023, 07/27/2022, Additional history exists Procedures Procedure Name Priority Date/Time Associated Diagnosis Comments MAMMO SCREENING DIGITAL TOMOSYNTHESIS BILATERAL W CAD Routine 11/20/2024 10:25 AM EDT Visit for screening mammogram AMBRY GENETIC ASSESSMENT Routine 10/20/2024 11:03 AM EDT from Last 3 Months Results * Mammo Screening Digital Tomosynthesis Bilateral [...] calcifications, or areas of distortion are seen. us John Tobar MD IMG MAMMOGRAPHY ORDERABLES F inal Result * [facility] QUESTIONNAIRE - , (10/20/2024 11:03 AM EDT) Kiersten 3.6 [facility] NCCN NCCN not met [facility] Comment:High Risk Cancer Ris k Assessment 10/20/2024 11:0 3 AM EDT us John Tobar MD GENETIC TESTING Final Result [facility]
[address] [place] [address], [place] [phone] from Last 3 Months Insurance [facility] MEDICARE ADVANTAGE PPO Care Teams Sports Administrator Relationship Specialty Start Date End Date John Tobar MD [address] [facility] [address] [place] [address] PCP - General 01/17/15
--- OUTSIDE RECORDS SUMMARY | 2024-11-27 09:42 | XMS_ITS | Encounter Summary ---
[facility] Address [address] [place] [address] Care Team Providers Care Customer Solutions Supervisor Name Role Phone John Tobar MD Primary Care Provider [phone] Encounter Details Date Type Department Care Team (Latest Contact Info) Description 11/20/2024 Travel Social History Tobacco Use Types Packs/Day Years [...] on file documented as of this encounter Visit Diagnoses Not on filedocumented in this encounter Care Teams Customer Solutions Supervisor Relationship Specialty Start Date End Date John Tobar MD [address] [place] [address] PCP - General 01/17/15 documented as of this encounter
--- NOTE | 2024-11-27 09:43 | XR_ITS ---
FINAL REPORT CLINICAL HISTORY: Posterior right knee pain x 2 months, no known trauma COMPARISON: None FINDINGS: RIGHT KNEE Three views demonstrate no acute fracture or dislocation. The joint spaces appear normal. No acute soft tissue abnormality is seen. IMPRESSION: No acute bony abnormality. Reviewed, Interpreted and Dictated by Chula Ibrahim MD Transcribed by Michelle Hameed Authenticated and [facility]
--- OUTSIDE RECORDS SUMMARY | 2024-11-27 09:43 | XMS_ITS | Patient Health Record ---
Author Organization [facility] Address [address] [place] [address] Care Team Providers Care Community Service Manager Name Role Phone John Tobar Primary Care Provider Veronique Ribera Unavailable [phone] Migration, Provider Unavailable Unavailable Allergies No Known Allergies Results Component Value Reference Range Notes M-Lipid Panel Reviewed date:05/29/2024 10:21:26 AM Interpretation: Performing Lab: Notes/Report: Patient Fasting? Y TRIG 170 30-150 mg/dl CHOL 149 140-200 mg/dl DLDL 73.56 100-129 mg/dL VLDL 34 0-40 mg/dL HDL 38 40-60 mg/dl CHLHDL 3.9 1-3.5 M-Thyroid Stimulating Hormon e Reviewed date:05/26/2024 01:35:51 PM Interpretation: Performing Lab: Notes/Report: TSH 1.22 0.465-4.68 uIU/mL M-Comprehensive Metabolic Pa paulette Reviewed date:05/29/2024 10:21:25 [...] AGRATIO 1.8 1.1-1.8 ALP 83 38-126 U/L M-Complete Blood Count Auto Diff Reviewed date:05/26/2024 [...] 0.2 0.0-0.4 K/mm3 BA# 0.1 0-0.2 K/mm3 DEXA Hip and Spine - Screeni ng Reviewed date:06/03/2024 10:21:41 AM Interpretation: Performing Lab: Notes/Report: H-VITB12 Reviewed date:05/26/2024 01:35:34 PM Interpretation: Performing Lab: Notes/Report: VITB12 630 239-931 pg/mL H-TVITD Reviewed date:05/26/2024 01:35:38 PM Interpretation: Performing Lab: Notes/Report: TVITD 36.3 30-100 ng/mL Deficient <20 ng/mL Insufficient 20-30 ng/mL Sufficient 30-100 ng/mL Potential Toxicity >100 ng/mL Cardiolite GXT Reviewed date:11/26/2024 09:59:01 AM Interpretation: Performing Lab: Notes/Report: Echocardiogram Reviewed date:11/25/2024 05:58:18 PM Interpretation: Performing Lab: Notes/Report: Medications Medication SIG (Take, Route, Frequency, Duration) Notes Start Date End Date Status Losartan Potassium 50 MG 1 tablet Orally Once a day; Duration: 90 days 11/09/2024 Active Multivitamin 1 TAB ONCE A DAY *Please review and pick correct strength-formulati on from [employer] options. If intended option is not shown, [...] Vaccine Route Administration Date Status Comme nts SHINGRIX Unknown 04/04/2021 Administered SHINGRIX Unknown 07/12/2021 Administered RSV Unknown 02/25/2023 Administered Prevnar PCV-20 (Pneumococcal conjugate 20) IM Intramuscular 02/26/2024 Administered Prevnar PCV-13 (Pneumococcal conjugate 13) IM Intramuscular 02/07/2015 Administered Pneumovax 23 IM Intramuscular 04/13/2016 Administered Influenza-Fluzone 3+years (NON-MEDICARE) Unknown 02/17/2018 Administered Influenza (Fluzone)--Medicare only IM Intramuscular 02/07/2015 Administered Influenza (Fluzone)--Medicare only IM Intramuscular 04/13/2016 Administered Fluzone High Dose IM Intramuscular 01/30/2019 Administered Fluzone High Dose IM Intramuscular 02/10/2020 Administered Fluzone High Dose IM Intramuscular 12/30/2020 Administered Fluzone High Dose IM Intramuscular 01/26/2022 Administered Fluzone High Dose IM Intramuscular 02/25/2023 Administered Fluzone High Dose IM Intramuscular 12/30/2023 Administered Boostrix IM Intramuscular 10/18/2022 Administered Problems Problem Type SNOMED Code ICD Code Onset Dates Problem Status W/U Status Risk Notes Problem Overweight (558783294) Overweight (E66.3) Active confirmed Problem Mixed hyperlipidemia (478472349) Mixed hyperlipidemia (E78.2) Active confirmed Problem Vitamin B12 deficiency (814229344) Vitamin B12 deficiency (E53.8) Active confirmed Problem Hypothyroidism (95350198) Hypothyroidism (acquired) (E03.9) Active confirmed Problem Vitamin D deficiency (64855783) Vitamin D deficiency (E55.9) Active confirmed Problem Gastroesophageal reflux disease (360148752) GERD without esophagitis (K21.9) Active confirmed Problem Essential hypertension (28079374) Hypertension, essential (I10) Active confirmed Problem Body mass index 30+ - obesity (068934176) BMI 30.0-30.9,adult (Z68.30) Active confirmed Problem Seasonal allergic rhinitis (428762669) Acute seasonal allergic rhinitis (J30.2) Active confirmed Problem Grief (978278616) Grief (F43.21) Active confirm ed Vital Signs Heart Rate 86 /min 11/09/2024 Temperature 98.1 degrees Fahrenheit 11/09/2024 Blood pressure diastolic 74 mm Hg 11/09/2024 Height 5 ft 6 in in 11/09/2024 Blood pressure systolic 128 mm Hg 11/09/2024 Weight 185.2 lbs 11/09/2024 BMI 29.89 kg/m2 11/09/2024 Encounters Encounter Location Date Provider Diagnosis [facility] [address] [facility] [address] [place] [address] 08/08/2024 Provider Migration GERD without esophagitis K21.9 and Vitamin B12 deficiency E53.8 [facility] [address] [facility] [address] [place], [place] [address] 12/30/2023 John Tobar Immunization(s) administered Z23 [facility] [address] [place], [place] [address] 02/26/2024 John Tobar Encounter for immunization Z23 [facility] [address] [facility] [address] [place], [place] [address] 05/25/2024 Veronique Ribera Hypertension, essential I10 ; [...] Grief F43.21 and Asymptomatic postmenopausal state Z78.0 [facility] [address] [place] [address] 11/09/2024 Veronique Ribera NORMAN (dyspnea on exertion) R06.09 ; Acute seasonal allergic rhinitis J30.2 ; Persistent cough R05.3 ; Hypertension, essential I10 and Mixed hyperlipidemia E78.2 [facility] [address] [address] 12/18/2023 Veronique Ribera [facility] [address] [facility] [address] [place] [address] 03/24/2024 John Besson [facility] [address] [place] [address] 08/05/2024 John Besson GERD without esophagitis K21.9 [facility] [address] [address] 08/17/2024 John Besson [facility] [address] [place] [address] 10/07/2024 John Besson [facility] [address] [facility] [address] [place] [address] 11/25/2024 Veronique Ribera Posterior left knee pain M25.562 [facility] [address] [facility] [address] [place] [address] 11/26/2024 Veronique Ribera Shortness of breath R06.02 and Abnormal stress test R94.39 Assessments Encounter Date Diagnosis (ICD Code) Assessment Notes Treatment Notes Treatment Clinical Notes Section Notes 12/30/2023 Immunization(s) administered (ICD-10 - Z23) 05/25/2024 Hypertension, essential (ICD-10 - I10) Blood pressure well controlled. Continue lisinopril. 05/25/2024 Medicare annual wellness visit, subsequent (ICD-10 - Z00.00) Well Visit, Over 65: Care Instructions material was published 11/25/2024 Posterior left knee pain (ICD-10 - M25.562) 11/26/2024 Shortness of breath (ICD-10 - R06.02) 11/09/2024 NORMAN (dyspnea on exertion) (ICD-10 - R06.09) EKG today is unremarkable but given her symptoms and risk factors including age, hypertension, hyperlipidemia would recommend additional testing with echo and chemical stress test. Follow-up based on those results 11/09/2024 Acute seasonal allergic rhinitis (ICD-10 - J30.2) 08/08/2024 GERD without esophagitis (ICD-10 - K21.9) 08/05/2024 GERD without esophagitis (ICD-10 - K21.9) 02/26/2024 Encounter for immunization (ICD-10 - Z23) 11/09/2024 Persistent cough (ICD-10 - R05.3) stop lisinopril and start losartan as noted 11/26/2024 Abnormal stress test (ICD-10 - R94.39) 05/25/2024 Mixed hyperlipidemia (ICD-10 - E78.2) LDL still well controlled, discussed dietary avoidance and increased activity to help lower triglycerides and improve HDL cholesterol 05/25/2024 Hypothyroidism (acquired) (ICD-10 - E03.9) Well-controlled on current dose, no changes 11/09/2024 Hypertension, essential (ICD-10 - I10) 08/08/2024 Vitamin B12 deficiency (ICD-10 - E53.8) 11/09/2024 Mixed hyperlipidemia (ICD-10 - E78.2) 05/25/2024 Vitamin B12 deficiency (ICD-10 - E53.8) [...] Right 08/15/2009 MRI : Cervical Spine 07/02/2011 X ray : Knee, Right 11/25/2024 DEXA Hip and Spine - Screening 8 DEXA Hip and Spine - Screening 4 EKG : In House 12/19/2009 EKG : In House 07/02/2011 EKG : In House 11/09/2024 MRI : Head, With and Without Contrast Holter Monitor : Event Recorder 07/02/19 12 Physical Therapy 08/18/2009 Physical Therapy 03/21/2021 H-CBC with AUTO DIFF 03/06/2010 H-CBC with AUTO DIFF 07/28/2013 H-CBC with AUTO DIFF 07/02/2011 H-VITAMIN B12 07/02/2011 H-VITAMIN B12 04/25/2015 H-VITAMIN B12 03/06/2010 H-VITAMIN B12 12/13/2016 H-PT/INR 07/02/2011 H-BMP 03/06/2010 H-CMP 07/28/2013 H-CMP 07/02/2011 H-CMP 11/14/2011 H-LIPID PANEL 07/02/2011 H-LIPID PANEL 07/28/2013 H-TSH 07/28/2013 H-TSH 07/02/2011 H-FREE T3 07/28/2013 [...] Hormone 02/18/2023 M-Vitamin B12 02/18/2023 M-Vitamin B12 12/02/2019 M-Vitamin B12 06/28/2020 M-Vitamin B12 05/25/2024 M-Vitamin B12 10/18/2022 M-Vitamin D 25 Hydroxy 10/18/2022 M-Vitamin D 25 Hydroxy 05/25/2024 M-Vitamin D 25 Hydroxy 02/18/2023 CTA : Cardiac 11/26/2024 Insurance Providers Payer Name Payer Address Payer Phone Subscriber Number Group Number Insured Name Patient Relationship to Insured Coverage Start Date Coverage End Date [facility] MEDICARE [address] [address] [place] [address] [id number] Amaya Montague Self - patient is the insured Medical (General) History Medical History History ICD Code Hypertension allergies GERD vitamin b12 deficiency fx left ankle Renal insufficiency syndrome NOS 2009 Normal Colonoscopy, Dr Lorenz Hyperlipidemia 2016 EGD with mild chronic g astritis, repeated 02/22 with gastritis- colonoscopy normal normal mammogram 10/27 Surgical History Surgery Date(Month/Year) 1977 stereotatic bx x 2 rt 5th toe surgery rt 4th toe surgery 2009 cataract surgery-rt eye 12/2019 cataract surgery- left eye 01/2020 Hospitalization History Reason Date(Month/Year) above
== END 2024-11-27 23:59 | disposition home or self-care (01) ==
LOC: RAD 09:39
PROVIDERS: PCP Nurse Practitioner Family; Visit Provider Nurse Practitioner Family
DX: M25.561 Pain in right knee (principal)
CPT/HCPCS: 73562

== ENCOUNTER 2024-11-30 07:23 | Outpatient (CLI) | payer MEDICARE, OTHER, SELFPAY ==
--- OUTSIDE RECORDS SUMMARY | 2024-11-09 06:30 | XMS_ITS ---
Author Organization [facility] PE D VIRGEN Address [address] [facility] [address] [place] [address] Care Team Providers Care Poultry Hatchery Laborer Name Role Phone John Tobar Primary Care Provider Veronique Ribera Unavailable [phone] Allergies No Known Allergies Results Component Value Reference Range Notes Echocardiogram Reviewed date:11/25/2024 05:58:18 PM Interpretation: Performing Lab: Notes/Report: Cardiolite GXT Reviewed date:11/26/2024 09:59:01 AM Interpretation: Performing Lab: Notes/Report: Reason For Referral Reason Cardiolyte GXT Ech o Diagnosis 1 NORMAN (dyspnea on exer tion) (R06.09) Referral Organization [facility] MARY JULIAN Referring Provider First Name Veronique Referring Provider Last Name Mounika Referring Provider Speciality Family Pra ctice Referred Organization [facility] Referred Address [address] [facility] Referred Provider Specialty Diagnostic R adiology General Notes Bhavani White 2024 04:08:39 PM >Orders sent to [facility] to schedule appt with [facility] Referral [...] review and pick correct strength-formulati on from [employer] options. If intended option is not shown, discontinue and re-order from Quick Search* Active Levocetirizine Dihydrochloride 5 MG 1 tablet in the evening Orally Once a day; Duration: 90 days 11/09/2024 Active Problems Problem Type SNOMED Code ICD Code Onset Dates Problem Status W/U Status Risk Notes Problem Acute seasonal allergic rhinitis (J30.2) Active confirmed Vital Signs BMI 29.89 kg/m2 11/09/2024 Weight 185.2 lbs 11/09/2024 Height 5 ft 6 in in 11/09/2024 Heart Rate 86 /min 11/09/2024 Blood pressure systolic 128 mm Hg 11/10/19 25 Blood pressure diastolic 74 mm Hg 025 Temperature 98.1 degrees Fahrenheit 11/10/19 25 Encounters Encounter Location Date Provider Diagnosis [facility] VIRGEN [address] [facility] [address] [place] [address] 11/09/2024 Veronique Ribera NORMAN (dyspnea on exertion) [...] te GXT Echo, [address] [facility], [place], [address], Next Appt Details Follow Up: pending results, Reason: Progress Notes * Amaya GARCIADOB:1945 (79 yo F)Acc No.[id number]:11/09/2024 Progress Notes Patient: Amaya ARGUELLO Provider: MORIAH Jon :1945 A ge:79 Y S ex:Female Date:11/09/2024 Address:[address] [place], [place] Pcp:John Tobar Subjective: * Chief Complaints: * [...] , Parkinson. P aternal Grand Father: , [place]. P aternal Grand Mother: , [place]. M aternal Grand Father: , Stroke. Maternal Grand Mother: , [place]. P aternal uncle: . P aternal aunt: [...] Travel outside [place]: no. 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 * Medications: T aking Multivitamin [...] 11/09/2024 02: 49:00 PM EDT > Authorization #[id number] - Tracking #[id number] [facility] [id number] [facility] exp 12-11-24Andrew grossman 11/25/2024 04:25:37 PM EDT [...] 11/09/2024 02: 49:00 PM EDT > Authorization #[id number] - Tracking #[id number] [facility] [id number] [facility] exp 88Andrew grossman 11/25/2024 04:25:37 PM EDT [...] 11/09/2024 02: 49:00 PM EDT > Authorization #[id number] - Tracking #[id number] [facility] [id number] [facility] exp 12-11-24Andrew Bruno R 11/25/2024 04:25:37 PM [...] Date: 11/09/2024 Generated for Josue ly/Bhumi/Virgen on: 11/30/2024 07:26 AM EDT History and Physical Notes * [...]
--- OUTSIDE RECORDS SUMMARY | 2024-11-20 10:01 | XMS_ITS | Encounter Summary ---
Author Organization [facility] Address [address] [place] [address] Care Team Providers Care Branch Service Specialist Name Role Phone John Tobar MD Primary Care Provider [phone] Reason for Referral * Diagnostic Imaging (Routine) - Closed Specialty Diagnoses / Procedures Referred By Walter little Referred To Contact Radiology Diagnoses Visit for screening mammogram Procedures Mammo Screening Digital Tomosynthesis Bilateral With CAD John Tobar MD [facility] [place] [address] [address] [facility] [address] [place] [address] Phone: tel: fax: Referral ID Status Reason Start Date Expiration Date Visits Re quested Visits Authorized [id number] Closed 09/08/2024 12/08/2025 1 1 Reason for Visit * Diagnostic Imaging (Routine) - Closed Specialty Diagnoses / Procedures Referred By Walter little Referred To Contact Radiology Diagnoses Visit for screening mammogram Procedures Mammo Screening Digital Tomosynthesis Bilateral With CAD John Tobar MD [facility] [address] [place] [address] Phone: tel: fax: Referral ID Status Reason Start Date Expiration Date Visits Re quested Visits Authorized [id number] Closed 09/08/2024 12/08/2025 1 1 Encounter Details Date Type Department Care Team (Latest Contact Info) Description 11/20/2024 10:01 AM EDT - 11/20/2024 11:59 PM EDT Hospital Encounter [facility] [address] [place] [address] John Tobar MD [address] [facility] [address] [address] Visit for screening mammogram Discharge Disposition: Home or Self Care Social History Tobacco Use Types Packs/Day Years Used Date Smoking Tobacco: Never Assessed Comments No Sex and Gender Information Value Date Recorded Sex Assigned at Female 11/13/2024 8:39 AM EDT Legal Sex Female 10:49 AM EDT Gender Identity Not on file Sexual Orientation Straight 11/13/2024 8: 39 AM EDT documented as of this encounter Plan of Treatment Not on file documented as of this encounter Procedures Procedure Name Priority Date/Time Associated Diagnosis Comments MAMMO SCREENING DIGITAL TOMOSYNTHESIS BILATERAL W CAD Routine 11/20/2024 10:25 AM EDT Visit for screening mammogram documented in this encounter Results * Mammo Screening Digital Tomosynthesis Bilateral With CAD (11/20/2024 10:25 AM EDT) Anatomical Region Laterality Modality Breast N/A Mammography 11/24/2024 12:4 5 PM EDT Impressions 11/24/2024 12:47 PM EDT No suspicious abnormality identified. OVERALL ASSESSMENT: ACR BI-RADS CATEGORY: 1, NEGATIVE: Recommend continued routine annual screening mammogram. The standard false-negative rate of mammography is between 10% and 25%. Complex patterns or increased breast density will markedly elevate the false-negative rate of mammography. A letter, in lay terminology, with the results of this exam will be mailed to the patient. 11/24/2024 12:47 PM by Fatuma Armstrong MD on Narrative 11/24/2024 12:47 PM EDT BILATERAL DIGITAL SCREENING MAMMOGRAM WITH TOMOSYNTHESIS CLINICAL INDICATION: Screening mammogram. TECHNIQUE: Bilateral low dose full field digital breast tomosynthesis imaging was performed. CAD was utilized. COMPARISON: Prior studies dating back to 01/24/2015 FINDINGS: There are scattered areas of fibroglandular density. RIGHT BREAST: No suspicious masses, calcifications, or areas of distortion are seen. LEFT BREAST: No suspicious masses, calcifications, or areas of distortion are seen. John Tobar MD IMG MAMMOGRAPHY ORDERABLES F inal Result documented in this encounter Visit Diagnoses Diagnosis Visit for screening mammogram documented in this encounter Care Teams Branch Service Specialist Relationship Specialty Start Date End Date John Tobar MD [address] [facility] [address] [facility] [address] [place] [address] PCP - General 01/17/15 documented as of this encounter
--- OUTSIDE RECORDS SUMMARY | 2024-11-25 13:54 | XMS_ITS ---
Author Organization [facility] Address [address] [place] [address] Care Team Providers Care Supervisor Fish Bait Processing Name Role Phone John Tobar Primary Care Provider MounikaVeronique cuba Unavailable [phone] Encounters Encounter Location Date Provider Diagnosis [facility] [address] [place], [place] [address] 11/25/2024 Veronique Ribera Posterior left knee pain M25.562 Assessments Encounter Date Diagnosis (ICD Code) Assessment Notes Treatment Notes Treatment Clinical Notes Section Notes 11/25/2024 Posterior left knee pain (ICD-10 - M25.562) Plan Of Treatment Pending Test Test Name Order Date X ray : Knee, Right 11/25/2024 Progress Notes * Amaya GARCIADOB:1945 (79 yo F)Acc No.[id number]:11/25/2024 Patient: Amaya ARGUELLO :1945 A ge:79 Y S ex:Female Address:[place] [address] Subjective: * Chief Complaints: * * Medical History: * Surgical History: * Hospitalization/Major Diagno stic Procedure: * Medications: Objective: * Vitals: * Physical Examination: Assessment: * Assessment: 1. P osterior left knee pain - M25.562 (Primary) Plan: * Treatment: * Procedure Codes: * true * Date: Generated for Josue ly/Bhumi/Virgen on: 0 11/30/2024 07:26 AM EDT
--- OUTSIDE RECORDS SUMMARY | 2024-11-26 05:40 | XMS_ITS ---
Author Organization [facility] Address [address] [place] [address] Care Team Providers Care Wildlife Protector Name Role Phone John Tobar Primary Care Provider Veronique Ribera Unavailable [phone] Encounters Encounter Location Date Provider Diagnosis [facility] [address] [place], [place] [address] 11/26/2024 Veronique Ribera Shortness of breath R06.02 and Abnormal stress test R94.39 Assessments Encounter Date Diagnosis (ICD Code) Assessment Notes Treatment Notes Treatment Clinical Notes Section Notes 11/26/2024 Shortness of breath (ICD-10 - R06.02) 11/26/2024 Abnormal stress test (ICD-10 - R94.39) Plan Of Treatment Pending Test Test Name Order Date CTA : Cardiac 11/26/2024 Progress Notes * Amaya GARCIADOB:1945 (79 yo F)Acc No.[id number]:11/26/2024 Patient: Amaya ARGUELLO :1945 A ge:79 Y S ex:Female Address:[place] [address] Subjective: * Chief Complaints: * * Medical History: * Surgical History: * Hospitalization/Major Diagno stic Procedure: * Medications: Objective: * Vitals: * Physical Examination: Assessment: * Assessment: 1. S hortness of breath - R06.02 2 . A bnormal stress test - R94.39 ? Plan: * Treatment: * 2.?Abnormal stress test?Imaging: CTA : Cardiac* Bhavani White 11/26/2024 09: 48:18 AM EDT > Auth # [id number] exp 01/25/25 [facility] [id number] [facility] * * Procedure Codes: * true * Date: Generated for Josue ly/Bhumi/Virgen on: 0 11/30/2024 07:26 AM EDT
--- OUTSIDE RECORDS SUMMARY | 2024-11-30 07:24 | XMS_ITS | Continuity of Care Document ---
Author Organization Formerly [facility]. If a dditional information is needed, contact Health Information Management at [phone] Address [address] [place] [address] Phone Care Team Providers Care Injection Molding Machine Setter Name Role Phone Unavailable Unavailable Unavailable Functional [...]
--- OUTSIDE RECORDS SUMMARY | 2024-11-30 07:26 | XMS_ITS | Data Portability ---
Author Organization [facility] Address [address] [facility] [address] [place] [address] Care Team Providers Care Exhibit Artist Name Role Phone O JUD MEDINA Electrical Development Engineer JUDD FOOTE Primary Care Provider Assessment No assessment recorded. Plan of Treatment Reminders Order Date Submit Date Provider Last Modified By Organization Details Last Modified Time Details Appointments FOLLOW UP DAK 2024 09:50A M KASI KING PA-C Not available Not available Not available Lab surgical patholog y study 2024 04 025 [facility], [address] [place] [address], [place], [address], 08/17/2024 15:09:03 Referral None recorded . Procedures None recorded . Surgeries None recorded . Imaging None recorded . Medication Orders None recorded . Patient TargetsNo targets recorded. Patient Instructions Encounter Date Encounter Id Patient Instructions Last Modified By Organization Details Last Modified Time 08/13/2024 [id number] Pt's ~3 months ago. [email or web address] Not available 08/13/2024 12:21:58 Reason for Referral None Reported. Results Created Date Observation Date Name Description Value Unit Range Abnormal Flag Note LastModifiedBy Organization Detail LastModifiedTime 08/14/1908/13/2024 SURGI ALEXIS surgical SEE BELOW abnormal Laona topat holog y Repor t NAME: ELAINE [...] Out Date: 08/17 15:08 1 Not Available [facility] [address] [facility], [place], [address], 08/17/2024 15:09:03 Result Notes None recorded. Procedures Surgical History Date Name Laterality Status Provider Name and Address Organization Details Recorded Time 5 DAK - Cryo [place] completed Olive [place] [facility] 08/13/2024 09:58:01 5 Blade Biopsy w/ ED&C completed Olive Trino [facility] 08/13/2024 09:57:20 delivery completed Anaid Saleh [facility] 08/13/2024 09:32:26 Imaging Results None recorded. Procedure [...] Tobacco Smoking Status Never [facility] 09:32:15 What Was The Date Of Your Most Recent Tobacco Screening? 08/13/2024 [email or web address] Information not available 08/13/2024 Sex: Unknown Functional Status None recorded. Mental Status None recorded. Family History Relationship Description Onset Age of this Age Resolved Age Notes LastModified by Organization Details LastModified Time Sister Malignant neoplasm of skin [email or web address] Not available 08/13 09:31:54 Sister Malignant neoplasm of skin scc [email or web address] Not available 08/13 09:32:05 Medical History No medical history recorded. Gynecological HistoryNo gynecological history recorded. 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
--- OUTSIDE RECORDS SUMMARY | 2024-11-30 07:27 | XMS_ITS | Encounter Summary ---
[facility] Organization [facility] Address [address] [place] [address] Care Team Providers Care Bolt Man Name Role Phone John Tobar MD Primary Care Provider Encounter Details Date Type Department Care Team [...] on filedocumented in this encounter Care Teams Bolt Man Relationship Specialty Start Date End Date John Tobar MD [address] [place] [address] PCP - General 01/17/15 documented as of this encounter
--- OUTSIDE RECORDS SUMMARY | 2024-11-30 07:27 | XMS_ITS | Clinical Summary ---
Author Organization [facility] Address [address] [place] [address] Care Team Providers Care Glue Wheel Operator Name Role Phone John Tobar MD Primary Care Provider Encounters Date Type Department Care Team Description 11/20/2024 10:01 AM EDT - 11/20/2024 11:59 PM EDT Hospital Encounter [address] [address] John Tobar MD Visit for [...] IMG MAMMOGRAPHY ORDERABLES F inal Result * [facility] GENETIC RISK ASSESSMENT QUESTIONNAIRE - , (10/20/2024 11:03 AM EDT) Kiersten 3.6 RAPHAEL [employer] NCCN NCCN not met [facility] GENETICS Comment:High Risk Cancer Ris k Assessment 10/20/2024 11:0 3 AM EDT us John Tobar MD GENETIC TESTING Final Result [facility]
[address] [place] [place] [address], [place] [phone] from Last 3 Months Insurance [facility] MEDICARE ADVANTAGE PPO Care Teams Glue Wheel Operator Relationship Specialty Start Date End Date John Tobar MD [address] [facility] [address] [place] [address] PCP - General 01/17/15
--- OUTSIDE RECORDS SUMMARY | 2024-11-30 07:27 | XMS_ITS | Patient Health Record ---
Author Organization [facility] Address [address] [place] [address] Care Team Providers Care Vaccine Key Customer Leader Name Role Phone John Tobar Primary Care Provider [phone] Veronique Ribera Unavailable [phone] Migration, Provider Unavailable Unavailable Allergies No Known [...] Performing Lab: Notes/Report: VITB12 630 239-931 pg/mL Cardiolite GXT Reviewed date:11/26/2024 09:59:01 AM Interpretation: Performing Lab: Notes/Report: Echocardiogram Reviewed date:11/25/2024 05:58:18 PM Interpretation: Performing Lab: Notes/Report: Medications Medication SIG (Take, Route, Frequency, Duration) Notes Start Date End Date Status Losartan Potassium 50 MG 1 tablet Orally Once a day; Duration: 90 days 11/09/2024 Active Multivitamin 1 TAB ONCE A DAY *Please review and pick correct strength-formulati on from [employer] options. If intended option is not shown, [...] Status W/U Status Risk Notes Problem Overweight (983178227) Overweight (E66.3) Active confirmed Problem Mixed hyperlipidemia (127013748) Mixed hyperlipidemia (E78.2) Active confirmed Problem Vitamin B12 deficiency (980963737) Vitamin B12 deficiency (E53.8) Active confirmed Problem Hypothyroidism (21847958) Hypothyroidism (acquired) (E03.9) Active confirmed Problem Vitamin D deficiency (76878340) Vitamin D deficiency (E55.9) Active confirmed Problem Gastroesophageal reflux disease (104172624) GERD without esophagitis (K21.9) Active confirmed Problem Essential hypertension (11482522) Hypertension, essential (I10) Active confirmed Problem Body mass index 30+ - obesity (175143126) BMI 30.0-30.9,adult (Z68.30) Active confirmed Problem Seasonal allergic rhinitis (762238793) Acute seasonal allergic rhinitis (J30.2) Active confirmed Problem Grief (277865576) Grief (F43.21) Active confirm ed Vital Signs Heart Rate 86 /min 11/09/2024 Temperature 98.1 degrees Fahrenheit 11/09/2024 Blood pressure diastolic 74 mm Hg 11/09/2024 Height 5 ft 6 in in 11/09/2024 Blood pressure systolic 128 mm Hg 11/09/2024 Weight 185.2 lbs 11/09/2024 BMI 29.89 kg/m2 11/09/2024 Encounters Encounter Location Date Provider Diagnosis [facility] [address] [facility] [address] [place] [address] 08/08/2024 Provider Migration GERD without esophagitis K21.9 and Vitamin B12 deficiency E53.8 [facility] [address] [facility] [address] [place], [place] [address] 12/30/2023 John Tobar Immunization(s) administered Z23 [facility] [address] [place], [place] [address] 02/26/2024 John Tobar Encounter for immunization Z23 [facility] [address] [facility] [address] [place], [place] [address] 05/25/2024 Veronique Ribera Hypertension, essential I10 ; [...] Grief F43.21 and Asymptomatic postmenopausal state Z78.0 [facility] [address] [place] [address] 11/09/2024 Veronique Ribera NORMAN (dyspnea on exertion) R06.09 ; Acute seasonal allergic rhinitis J30.2 ; Persistent cough R05.3 ; Hypertension, essential I10 and Mixed hyperlipidemia E78.2 [facility] [address] [address] 12/18/2023 Veronique Ribera [facility] [address] [facility] [address] [place] [address] 03/24/2024 John Besson [facility] [address] [place] [address] 08/05/2024 John Besson GERD without esophagitis K21.9 [facility] [address] [address] 08/17/2024 John Besson [facility] [address] [place] [address] 10/07/2024 John Besson [facility] [address] [facility] [address] [place] [address] 11/25/2024 Veronique Ribera Posterior left knee pain M25.562 [facility] [address] [facility] [address] [place] [address] 11/26/2024 Veronique Ribera Shortness of breath R06.02 [...] Acute seasonal allergic rhinitis (ICD-10 - J30.2) 11/26/2024 Shortness of breath (ICD-10 - R06.02) 11/25/2024 Posterior left knee pain (ICD-10 - M25.562) 08/08/2024 GERD without esophagitis (ICD-10 - K21.9) 08/05/2024 GERD without esophagitis (ICD-10 - K21.9) 02/26/2024 Encounter for immunization (ICD-10 - Z23) 12/30/2023 Immunization(s) administered (ICD-10 - Z23) 05/25/2024 Hypertension, essential (ICD-10 - I10) Blood pressure well controlled. Continue lisinopril. 05/25/2024 Medicare annual wellness visit, subsequent (ICD-10 - Z00.00) Well Visit, Over 65: Care Instructions material was published 05/25/2024 Mixed hyperlipidemia (ICD-10 - E78.2) LDL still well controlled, discussed dietary avoidance and increased activity to help lower triglycerides and improve HDL cholesterol 11/26/2024 Abnormal stress test (ICD-10 - R94.39) 11/09/2024 Persistent cough (ICD-10 - R05.3) stop lisinopril and start losartan as noted 11/09/2024 Hypertension, essential (ICD-10 - I10) 05/25/2024 Hypothyroidism (acquired) (ICD-10 - E03.9) Well-controlled on current dose, no changes 05/25/2024 Vitamin B12 deficiency (ICD-10 - E53.8) 08/08/2024 Vitamin B12 deficiency (ICD-10 - E53.8) 11/09/2024 Mixed hyperlipidemia (ICD-10 - E78.2) 05/25/2024 Vitamin D deficiency (ICD-10 - E55.9) [...] 11/25/2024 DEXA Hip and Spine - Screening 4 DEXA Hip and Spine - Screening 8 EKG : In House 07/02/2011 EKG : In House 12/19/2009 EKG : In House 11/09/2024 MRI : Head, With and Without Contrast Holter Monitor : Event Recorder 07/02/19 12 Physical Therapy 03/21/2021 Physical Therapy 08/18/2009 H-CBC with AUTO DIFF 07/28/2013 H-CBC with AUTO DIFF 03/06/2010 H-CBC with AUTO DIFF 07/02/2011 H-VITAMIN B12 07/02/2011 H-VITAMIN B12 12/13/2016 H-VITAMIN B12 04/25/2015 H-VITAMIN B12 03/06/2010 H-PT/INR 07/02/2011 H-BMP 03/06/2010 H-CMP 07/28/2013 H-CMP 11/14/2011 H-CMP 07/02/2011 H-LIPID PANEL 07/02/2011 H-LIPID PANEL 07/28/2013 H-TSH 07/28/2013 H-TSH 07/02/2011 H-FREE T3 12/13/2016 H-FREE T3 07/28/2013 H-FREE T4 07/28/2013 H-HELICOBACTER PYLORI IGM AB 07/26/2008 H-URINALYSIS 07/02/2011 H-URINE 24 HOUR FOR PROTEIN 09/11/2010 H-CREATININE CLEARANCE 24HR UA 1 spirometry 12/19/2009 M-Complete Blood Count Auto Diff 020 M-Complete Blood Count Auto Diff 023 M-Comprehensive Metabolic Panel 02/19/20 M-Comprehensive Metabolic Panel 12/02/19 M-Lipid Panel 02/18/2023 M-Lipid Panel 12/02/2019 M-Free T4 (Free Thyroxine) 02/18/2023 M-Thyroid Stimulating Hormone 02/18/2023 M-Thyroid Stimulating Hormone 12/02/2019 M-Vitamin B12 12/02/2019 M-Vitamin B12 06/28/2020 M-Vitamin B12 05/25/2024 M-Vitamin B12 02/18/2023 M-Vitamin B12 10/18/2022 M-Vitamin D 25 Hydroxy 10/18/2022 M-Vitamin D 25 Hydroxy 02/18/2023 M-Vitamin D 25 Hydroxy 05/25/2024 CTA : Cardiac 11/26/2024 Insurance Providers Payer Name Payer Address Payer Phone Subscriber Number Group Number Insured Name Patient Relationship to Insured Coverage Start Date Coverage End Date [facility] MED[facility] [address] [address] [place] [address] [id number] Amaya Montague Self - patient is the [...]
[2024-11-30 07:35] VITALS: BMI 29.0
[2024-11-30 07:41] VITALS: BP 145/68; PULSE 79; RESP 16; TEMP 36.1; O2SAT 96
[2024-11-30] MEDS: METOPROLOL TARTRATE 50MG TABLET PO (07:46)
[2024-11-30] MEDS: IVABRADINE HCL 7.5MG TABLET PO (07:46)
[2024-11-30 08:13] LABS: Anion Gap 8.9 mEq/L (5-15); Blood Urea Nitrogen 21 mg/dl (7-17); Calcium 9.3 mg/dl (8.4-10.2); Carbon Dioxide 25 mmol/L (22.0-30.0); Chloride 109 mmol/L (98-107); Creatinine Clearance Estimated 60 mL/min (50-200); Creatinine,Serum 0.90 mg/dl (0.52-1.04); Estimated Glomerular Filt Rate 61 ml/min (>60); GFR (African American) 73 ML/MIN (>60); Glucose 91 mg/dl (74-100); Potassium 3.9 mmoL/L (3.5-5.1); Sodium 139 mmol/L (136-145)
[2024-11-30 08:31] VITALS: BP 133/73; PULSE 71; RESP 16; O2SAT 99
[2024-11-30 08:34] VITALS: BP 149/77; PULSE 58; RESP 16; O2SAT 98
[2024-11-30 08:37] VITALS: BP 101/52; PULSE 59; RESP 16; O2SAT 96
[2024-11-30] MEDS: SODIUM CHLORIDE 0.9% 10ML SYR (RAD ONLY) 10 ML IV (08:41)
[2024-11-30] MEDS: 0.9 % SODIUM CHLORIDE 50 ML VIAL IV (08:41)
[2024-11-30] MEDS: IOPAMIDOL-370 (76%);100ML BOTTLE 85 ML IV (08:42)
== END 2024-11-30 08:50 | disposition home or self-care (01) ==
PROVIDERS: Internal Medicine; PCP Nurse Practitioner Family; Visit Provider Nurse Practitioner Family
DX: I25.10 Atherosclerotic heart disease of native coronary artery without angina pectoris (principal); I51.5 Myocardial degeneration; K44.9 Diaphragmatic hernia without obstruction or gangrene; R91.1 Solitary pulmonary nodule
CPT/HCPCS: 75574; 80048; Q9967

== ENCOUNTER 2024-12-28 08:42 | Outpatient (RCR) | payer MEDICARE, OTHER, SELFPAY ==
--- NOTE | 2024-12-28 13:26 | HMH.PTOPEV ---
PT Outpatient Evaluation Rehab PT Outpatient Evaluation Start: 12/28/24 09:04 Freq: Status: Active Protocol: Document 12/28/24 09:04 UZMA (Rec: 12/28/24 13:25 UZMA [id number]) E-signed By Kaley Gómez, PT Outpatient Therapy Subjective History Subjective History Pt is a 79 y/o female who reports onset of R knee pain in September. Pt states she possibly injured her knee while bending and reaching in her garden. Pt denies known swelling, bruising, or hearing/feeling a pop. Pt reports current symptoms of posterior knee pain that refers into the lateral and anterior aspect of her knee at times. Pt reports pain is aggravated by changing positions, increased weightbearing on the RLE, torque/ twisting, prolonged standing, prolonged walking, and walking on uneven ground. Pt reports her right knee does feel like it could buckle when she puts more weight on it for example getting out of a chair. Pt denies falls or required use of an AD. Pt denies paresthesia or locking/catching of the knee. Pt reports difficulty sleeping requiring Tylenol PM to assist with sleep health. Pt had a R knee radiograph on No acute bony abnormality. Pt denies having a MRI. Pt also reports chronic L ankle pain after breaking her ankle 18 years ago that worsens with weightbearing although her main complaint is R knee pain at this time . Medical History: Hypertension New diagnosis of No cancer in past 12 months? Chief Complaint Pain Symptom Type Ache,Sharp,Dull Symptoms Relieved By OTC Meds Symptoms Aggravated Standing,Physical Activity,Twisting,Walking By Current Functional Sleeping,Standing,Recreation Activity,Walking Limitations Symptom Description Constant but Variable Level of pain today 4 (0-10) Pain scale - at its 3 best (0-10) Pain scale - at its 8 worst (0-10) Hip/Knee Eval Gait Observation General Gait Pattern No Deviations/Normal Observation Assistive Device Assistive Devices None / NA Palpation Tenderness right Knee Palpation Tenderness Finding Knee Palpation 2/4 TTP of lateral>medial joint line, fibular head, LCL Overall Comment MMT Hip Flexion Strength 4- Good- Grade Hip Abduction 4- Good- Strength Grade Hip Adduction 4- Good- Strength Grade Hip Extension 4- Good- Strength Grade Knee Extension 4+ Good+ Strength Grade Knee Flexion 4+ Good+ Strength Grade ROM Knee Extension 8 Active Range of Motion (degrees) Knee Extension 0 Passive Range of Motion (degrees) Knee Flexion Active 120 Range of Motion ( degrees) Effusion joint effusion knee right exam standard Mid - Patellar 41 Circumerential Measure (cm) Special Tests Knee Valgus Stress Negative Right Test Knee Varus Stress Positive Right Test Knee Jovanni Test Negative Right Lower Extremity Functional Index Activities Today, do you or would you have any difficulty at all with: a.Any of your usual Quite a bit of difficulty work, housework or school activities b. Your usual Moderate difficulty hobbies, recreational or sporting activities c. Getting into or No difficulty out of the bath d. Walking between A little bit of difficulty rooms e. Putting on your A little bit of difficulty shoes or socks f. Squatting Quite a bit of difficulty g. Lifting an object A little bit of difficulty , like a bag of groceries from the floor h. Performing light No difficulty activities around your home i. Performing heavy Moderate difficulty activities around your home j. Getting into or A little bit of difficulty out of a car k. Walking 2 blocks Moderate difficulty l. Walking a mile Extreme difficulty or unable to perform activity m. Going up or down A little bit of difficulty 10 stairs (about 1 flight of stairs) n. Standing for 1 Extreme difficulty or unable to perform activity hour o. Sitting for 1 A little bit of difficulty hour p. Running on even Extreme difficulty or unable to perform activity ground q. Running on uneven Extreme difficulty or unable to perform activity ground r. Making sharp Extreme difficulty or unable to perform activity turns while running fast s. Hopping Quite a bit of difficulty t. Rolling over in Quite a bit of difficulty bed LEFI Score Lower Extremity 36 Functional Index Score Outpatient Therapy Assessment Impairments Problems/ Palpation Tenderness,Impaired Range of Motion,Impaired Impairmments Strength,Impaired Walking,Impaired Standing,Impaired Squatting,Subjective C/O Pain,Impaired Self Care/Self Management Prognosis Rehab Potential Good Clinical Impression Consistent with Yes Diagnosis Additional details: S/s most consistent with R knee LCL sprain with mild laxity noted with varus stress test. PT Patient Goals PT Patient Goals PT Short Term 3 weeks: Patient Goals 1. Pt to verbalize compliance with HEP to assist with progress. 2. Improve LEFS score to 46/80 to improve overall QOL/ function. 3. Improve pain at worst to 6/10 to improve overall QOL /function. PT Long-Term Patient 6 weeks: Goals 1. Improve R knee AROM to 0-120 to assist with mobility /function. 2. Improve RLE MMT to 4+/5 grossly to assist with function 3. Improve pain at worst to 4/10 to improve overall QOL /function. 4. Improve LEFS score to 56/80 to improve overall QOL/ function. 5. Improve R knee tenderness to palpation to 0-1/4 to assist with pain. Outpatient Therapy Plan of Care Treatment Plan May Include Therapeutic Exercise Yes Including Home Exercise Program Manual Therapy Yes Techniques Neuromuscular Re- Yes education Therapeutic Yes Activities to Return to Previous Functional/Work Level Gait Training Yes ADL/Self Care Yes Education Dry Needling Yes Thermal Modalities Yes Electrical Yes Stimulation Ultrasound/ Yes Phonophoresis Iontophoresis Yes Orthotics/Bracing/ Yes Splinting Vasopneumatic Yes Compression Pump Massage Yes Group Therapy for Yes Medicare Eval/Re-Eval Yes Aquatic Therapy Yes Frequency Times per week 2 Duration Number of Weeks 4-6 Addendums This patient is a No candidate for social or vocational rehab ? Patient/Guardian Yes verbally acknowledges understanding of treatment program and consents to further treatment? Patient/Guardian Yes verbally acknowledges understanding of diagnosis, prognosis and goals for treatment? Eval Complexity PT Charges 99438 - Low Complexity Shoulder/Elbow Eval Shoulder Objective Measurements Elbow Objective Measurements PHYSICIAN CERTIFICATION: I certify the specified therapy services for Amaya Montague are required, authorized, and reviewed every 30 days.
== END 2024-12-28 23:59 | disposition home or self-care (01) ==
LOC: PT 08:42
PROVIDERS: PCP Nurse Practitioner Family; Visit Provider Nurse Practitioner Family
DX: G89.29 Other chronic pain (principal); M25.561 Pain in right knee
CPT/HCPCS: 97035; 97110; 97161

== ENCOUNTER 2025-02-02 11:00 | Outpatient (RCR) | payer MEDICARE, OTHER, SELFPAY ==
--- NOTE | 2025-02-02 12:16 | HMH.RHREAS ---
Rehab Reassessment Rehab OP Re-assessment Start: 01/11/25 08:04 Freq: Status: Active Protocol: Document 02/02/25 11:12 UZMA (Rec: 02/02/25 12:16 UZMA [id number]) E-signed By Kaley Gómez PT Lower Extremity Functional Index Activities Today, do you or would you have any difficulty at all with: a.Any of your usual Moderate difficulty work, housework or school activities b. Your usual A little bit of difficulty hobbies, recreational or sporting activities c. Getting into or No difficulty out of the bath d. Walking between No difficulty rooms e. Putting on your A little bit of difficulty shoes or socks f. Squatting Moderate difficulty g. Lifting an object No difficulty , like a bag of groceries from the floor h. Performing light A little bit of difficulty activities around your home i. Performing heavy Moderate difficulty activities around your home j. Getting into or A little bit of difficulty out of a car k. Walking 2 blocks Moderate difficulty l. Walking a mile Quite a bit of difficulty m. Going up or down Moderate difficulty 10 stairs (about 1 flight of stairs) n. Standing for 1 Quite a bit of difficulty hour o. Sitting for 1 Moderate difficulty hour p. Running on even Extreme difficulty or unable to perform activity ground q. Running on uneven Extreme difficulty or unable to perform activity ground r. Making sharp Extreme difficulty or unable to perform activity turns while running fast s. Hopping Quite a bit of difficulty t. Rolling over in A little bit of difficulty bed LEFI Score Lower Extremity 42 Functional Index Score Rehab Re-assessment Subjective Subjective Pt reports she has not attended PT in 22 days due to self holding PT and scheduling an appointment with an orthopedic doctor at [facility] due to severity of left knee pain. Pt reports she had a R knee MRI ~2 weeks ago with findings of a lateral meniscus tear. Pt reports she had an injection with initial improvement in symptoms although it is starting to wear off. Pt reports pain at worst as 3/10 on VAS following the injection. Pt reports ortho recommended she continue conservative care at this time. Pt reports she continues to experience right lateral, medial and posterior knee pain aggravated by standing, walking and stair climbing . Pt also reports an intermittent catching sensation of the R knee with walking. Pt denies locking of the knee or instability. Pt reports she has been unable to perform her HEP because her dog tore of the paper with the instructions. Objective Objective Notes R knee palpation: 2-3/4 TTP of lateral>medial joint line R knee AROM: 0-5-120 RLE MMT: 4/5 grossly Gait: mildly antalgic Assessment Assessment Notes Pt has only attended 2 PT treatment session since the initial evaluation performed on 12/28/24 and voiced non- compliance with HEP. Pt reports she had a R knee MRI with findings of a lateral meniscus tear and saw an orthopedic doctor who recommended continued conservative care at this time. Pt continues to demonstrate posterolateral knee pain aggravated by standing, walking and stair climbing. Overall, the pt would continue to benefit from skilled PT to further improve subjective report of pain, knee extension AROM, RLE strength and functional activity tolerance to improve overall QOL and function. PT Patient Goals PT Short Term 3 weeks: 05/08 Patient Goals 1. Pt to verbalize compliance with HEP to assist with progress. -NOT MET 2. Improve LEFS score to 46/80 to improve overall QOL/ function. -NOT MET 3. Improve pain at worst to 6/10 to improve overall QOL /function. -MET PT Scientific Publications Editor Patient 6 weeks: Goals 1. Improve R knee AROM to 0-120 to assist with mobility /function. 2. Improve RLE MMT to 4+/5 grossly to assist with function 3. Improve pain at worst to 4/10 to improve overall QOL /function. 4. Improve LEFS score to 56/80 to improve overall QOL/ function. 5. Improve R knee tenderness to palpation to 0-1/4 to assist with pain. Plan Plan Continue POC. This reassessment will be sent to the referring provider for signature. Frequency of Therapy 2x/week Duration of Therapy 4 more weeks Therapeutic Exercise Yes Including Home Exercise Program Manual Therapy Yes Techniques Neuromuscular Re- Yes education Therapeutic Yes Activities to Return to Previous Functional/Work Level Gait Training Yes ADL/Self Care Yes Education Dry Needling Yes Thermal Modalities Yes Electrical Yes Stimulation Ultrasound/ Yes Phonophoresis Iontophoresis Yes Orthotics/Bracing/ Yes Splinting Vasopneumatic Yes Compression Pump Group Therapy for Yes Medicare Eval/Re-Eval Yes Time and Billing Re-Eval Time 9 Re-Eval Billing 0 Units Charge for PT No reassessment? Charge for OT No reassessment? PHYSICIAN CERTIFICATION: I certify the specified therapy services for Amaya R Eddi are required, authorized, and reviewed every 30 days.
== END 2025-02-02 23:59 | disposition home or self-care (01) ==
LOC: PT 11:00
PROVIDERS: PCP Nurse Practitioner Family; Visit Provider Nurse Practitioner Family
DX: M25.561 Pain in right knee (principal); G89.29 Other chronic pain
CPT/HCPCS: 97014; 97110; 97530; G0283

== ENCOUNTER 2025-02-19 09:00 | Outpatient (RCR) | payer MEDICARE, OTHER, SELFPAY | END 2025-02-19 23:59 | disposition home or self-care (01) | LOC: PT 09:00 | PROVIDERS: PCP Nurse Practitioner Family; Visit Provider Nurse Practitioner Family | DX: M25.561 Pain in right knee (principal); G89.29 Other chronic pain | CPT/HCPCS: 97110 ==

== ENCOUNTER 2025-03-03 12:53 | Outpatient (RCR) | payer MEDICARE, OTHER, SELFPAY | END 2025-03-03 23:59 | disposition home or self-care (01) | LOC: PT 12:53 | PROVIDERS: PCP Nurse Practitioner Family; Visit Provider Podiatrist Foot & Ankle Surgery | DX: M76.72 Peroneal tendinitis, left leg (principal) | CPT/HCPCS: 97162 ==

== ENCOUNTER 2025-03-25 10:00 | Outpatient (RCR) | payer MEDICARE, OTHER, SELFPAY | END 2025-03-30 23:59 | disposition home or self-care (01) | LOC: PT 10:00 | PROVIDERS: PCP Nurse Practitioner Family; Visit Provider Podiatrist Foot & Ankle Surgery | DX: M76.72 Peroneal tendinitis, left leg (principal) | CPT/HCPCS: 97035; 97110; 97140 ==

== ENCOUNTER 2025-04-16 09:00 | Outpatient (RCR) | payer MEDICARE, OTHER, SELFPAY | END 2025-04-20 23:59 | disposition home or self-care (01) | LOC: PT 09:00 | PROVIDERS: PCP Nurse Practitioner Family; Visit Provider Podiatrist Foot & Ankle Surgery | DX: M76.72 Peroneal tendinitis, left leg (principal) | CPT/HCPCS: 97110 ==

== ENCOUNTER 2025-04-20 10:12 | Outpatient (CLI) | payer MEDICARE, OTHER, SELFPAY ==
--- OUTSIDE RECORDS SUMMARY | 2024-08-08 16:30 | XMS_ITS ---
Author Organization [facility] IM PE D [facility] Address [address] [place] [address] Care Team Providers Care Biodiesel Division Manager Name Role Phone John Tobar Primary Care Provider Veronique Ribera Unavailable [phone] Migration, Provider Unavailable Unavailable [facility] Encounter Medications Medication SIG (Take, Route, Frequency, Duration) Notes Start Date End Date Status 3CC SYRINGES AND 23 GAUGE NEEDLES USE MONTHLY FOR B12 INJECTIONS; Duration: 84 DAYS *Please review for potential replacement for e-prescription and drug interaction check* Active Atorvastatin Calcium 20 MG 1 tab(s) orally once a day; Duration: 90 days Active Levothyroxine Sodium 75 MCG TAKE 1 TABLET EVERY DAY; Duration: 90 days Active Cetirizine HCl 10 MG 1 tab(s) orally onc e a day prn; Duration: 90 days Active Multivitamin 1 TAB ONCE A DAY *Please review and pick correct strength-formulat [facility] from [facility] options. If intended option is not shown, discontinue and re-order from Quick Search* Active Lisinopril 20 MG 1 tab(s) orally once a day; Duration: 90 days Active Omeprazole 40 MG 1 cap(s) orally once a day; Duration: 90 days Active Cyanocobalamin 1000 MCG/ML 1000 mcg intramuscularly once a month; Duration: 84 days Active Encounters Encounter Location Date Provider Diagnosis [facility] [address] [place] [address] 08/08/2024 Provider Migration GERD without esophagitis K21.9 and Vitamin B12 deficiency E53.8 Assessments Encounter Date Diagnosis (ICD Code) Assessment Notes Treatment Notes Treatment Clinical Notes Section Notes 08/08/2024 GERD without esophagitis (ICD-10 - K21.9) 08/08/2024 Vitamin B12 deficiency (ICD-10 - E53.8) Plan Of Treatment Medication Medication Name Sig Start Date Stop Date Notes 3CC SYRINGES AND 23 GAUGE NEEDLES USE MONTHLY FOR B12 INJECTIONS; Duration: 84 DAYS *Please review for potential replacement for e-prescription and drug interaction check* Lisinopril 20 MG 1 tab(s) orally once a day; Duration: 90 days Omeprazole 40 MG 1 cap(s) orally once a day; Duration: 90 days Cyanocobalamin 1000 MCG/ML 1000 mcg intramuscularly once a month; Duration: 84 days Progress Notes * Amaya GARCIADOB:1945 (79 yo F)Acc No.[id number]:08/08/2024 Patient: Amaya ARGUELLO Provider: Ibrahima leroy Migration :1945 A ge:78 Y S ex:Female Date:08/08/2024 Address:[address] [place], [id number] Pcp:John Tobar Subjective: * Chief Complaints: * 1 . Multum To Medispan Conversion Encounter. * Medical History: * Medications: T aking Multivitamin 1 TAB ONCE A DAY , Notes to Pharmacist: *Please review and pick [facility]. If intended option is not shown, discontinue and re-order from Quick Search*, Taking Cetirizine HCl 10 MG Tablet 1 tab(s) orally once a day prn , Taking Levothyroxine Sodium 75 MCG Tablet TAKE 1 TABLET EVERY DAY , Taking Atorvastatin Calcium 20 MG Tablet 1 tab(s) orally once a day Objective: * Vitals: Assessment: * Assessment: 1. G ERD without esophagitis - K21.9 2 . V itamin B12 deficiency - E53.8? Plan: * Treatment: 2. V itamin B12 deficiency Refill 3CC SYRINGES AND 23 GAUGE NEEDLES, USE MONTHLY FOR B12 INJECTIONS, 84 DAYS, 3, Refills 3, Notes to Pharmacist: *Please review for potential replacement for e-prescription and drug interaction check*; R efill Cyanocobalamin Solution, 1000 MCG/ML, 1000 mcg, intramuscularly, once a month, 84 days, 3, Refills 3. 3. O thers Start Lisinopril Tablet, 20 MG, 1 tab(s), orally, once a day, 90 days, 90 Tablet, Refills 1. ? * * Electronic signature of Prov ider Migration on 04/20/2025 at 10:37 AM EST Sign off status: Pending * Provider: Ibrahima leroy Migration Date: 0 08/08/2024 Generated for Josue ly/Bhumi/Barbaraitting on: 1 06/21/2024 10:37 AM EST
--- NOTE | 2025-04-20 10:16 | XR_ITS ---
FINAL REPORT CLINICAL HISTORY: Evaluation of Left Foot Pain COMPARISON: None FINDINGS: AP, oblique and lateral views of the left foot were obtained. There is no acute fracture or dislocation. Mild degenerative changes are noted in the midfoot. Soft tissues are unremarkable. IMPRESSION: Mild midfoot degenerative changes, with no acute osseous abnormality of the left foot. Reviewed, Interpreted and Dictated by Priya Schafer MD Transcribed by Susana Carmona Authenticated and . [facility]
--- NOTE | 2025-04-20 10:16 | XR_ITS ---
FINAL REPORT CLINICAL HISTORY: Evaluation of Left Ankle Pain COMPARISON: 12/23/2024 FINDINGS: AP, oblique, and lateral views of the left ankle were obtained. There is no fracture or dislocation. The ankle mortise is intact. Mild degenerative joint disease is present. Soft tissues are unremarkable. IMPRESSION: Mild degenerative joint disease, with no acute osseous abnormality of the left ankle. Reviewed, Interpreted and Dictated by Priya Schafer MD Transcribed by Susana Carmona Authenticated and [facility]
--- OUTSIDE RECORDS SUMMARY | 2025-04-20 10:38 | XMS_ITS | Clinical Summary ---
[facility] Organization [facility] Address [address] [place] [address] Care Team Providers Care Baseball Player Name Role Phone John Tobar MD Primary Care Provider [phone] Family History Medical History Relation Name Comments [...] (1 - 1- dose 75+ series) 2021 INFLUENZA VACCINE 12/04/2024 12/30/2023, , 01/26/2022, Additional history exists COVID-19 Vaccine ( - 2024-2 6 season) 2025 04/04/2022, 11/28/2021, 02/15/2021, Additional history exists TDAP/TD VACCINES (2 - Td or Tdap) 10/18/2032 023 ZOSTER VACCINE Completed 07/12/2021, 04/04/2021 Pneumococcal Vaccine 50+ Completed 02/26/2024 MAMMOGRAM Discontinued 11/20/2024, 0611/2023, 07/27/2022, Additional history exists Procedures Procedure Name Priority Date/Time Associated Diagnosis Comments MAMMO SCREENING DIGITAL TOMOSYNTHESIS BILATERAL W CAD Routine 11/20/2024 10:25 AM EDT Visit for screening mammogram from Last 3 Months or Most Recently Relevant to Health Maintenance Results * Mammo Screening Digital Tomosynthesis Bilateral [...] calcifications, or areas of distortion are seen. Jhon Tobar MD IMG MAMMOGRAPHY ORDERABLES F inal Result from Last 3 Months or Most Recently Relevant to Health Maintenance Insurance [facility] MEDICARE ADVANTAGE PPO Care Teams Baseball Player Relationship Specialty Start Date End Date John Tobar MD [facility] [address] [place] [address] PCP - General 01/17/15
--- OUTSIDE RECORDS SUMMARY | 2025-04-20 10:38 | XMS_ITS | Patient Health Record ---
Author Organization [facility] Address [address] [place] [address] [place] [address] Care Team Providers Care Chili Maker Name Role Phone John Tobar Primary Care Provider [phone] Veronique Ribera Unavailable [phone] Migration, Provider Unavailable Unavailable Allergies No Known Allergies Results Component Value Reference Range Notes DEXA Hip and Spine - Screeni ng Reviewed date:06/03/2024 10:21:41 AM Interpretation: Performing Lab: Notes/Report: M-Thyroid Stimulating Hormon e Reviewed date:05/26/2024 01:35:51 PM Interpretation: Performing Lab: Notes/Report: TSH 1.22 0.465-4.68 uIU/mL M-Lipid Panel Reviewed date:05/29/2024 10:21:26 AM Interpretation: Performing Lab: Notes/Report: Patient Fasting? Y TRIG 170 30-150 mg/dl CHOL 149 140-200 mg/dl DLDL 73.56 100-129 mg/dL VLDL 34 0-40 mg/dL HDL 38 40-60 mg/dl CHLHDL 3.9 1-3.5 M-Comprehensive Metabolic Pa paulette Reviewed date:05/29/2024 10:21:25 [...] 0.2 0.0-0.4 K/mm3 BA# 0.1 0-0.2 K/mm3 H-VITB12 Reviewed date:05/26/2024 01:35:34 PM Interpretation: Performing Lab: Notes/Report: VITB12 630 239-931 pg/mL H-TVITD Reviewed date:05/26/2024 01:35:38 PM Interpretation: Performing Lab: Notes/Report: TVITD 36.3 30-100 ng/mL Deficient <20 ng/mL Insufficient 20-30 ng/mL Sufficient 30-100 ng/mL Potential Toxicity >100 ng/mL MRI : Knee, Right Reviewed date:01/19/2025 02:55:59 PM Interpretation: Performing Lab: Notes/Report: Echocardiogram Reviewed date:11/25/2024 05:58:18 PM Interpretation: Performing Lab: Notes/Report: Cardiolite GXT Reviewed date:11/26/2024 09:59:01 AM Interpretation: Performing Lab: Notes/Report: CTA : Cardiac Reviewed date:12/03/2024 05:57:58 PM Interpretation: Performing Lab: Notes/Report: X ray : Knee, Right Reviewed date:12/03/2024 05:50:45 PM Interpretation: Performing Lab: Notes/Report: Medications Medication SIG (Take, Route, Frequency, Duration) Notes Start Date End Date Status Levocetirizine Dihydrochloride 5 MG 1 tablet in the evening Orally Once a day; Duration: 90 days 11/09/2024 Active Atorvastatin Calcium 20 MG 1 tab(s) oral ly once a day; Duration: 90 days Active Losartan Potassium 50 MG 1 tablet Orally Once a day; Duration: 90 days 11/09/2024 Active Multivitamin 1 TAB ONCE A DAY Active Levothyroxine Sodium 75 MCG TAKE 1 TABLE T EVERY DAY; Duration: 90 days Active Omeprazole 40 MG 1 cap(s) orally once a day; Duration: 90 days Active Immunizations Vaccine Route [...] Status W/U Status Risk Notes Problem Overweight (342952129) Overweight (E66.3) Active confirmed Problem Mixed hyperlipidemia (544895335) Mixed hyperlipidemia (E78.2) Active confirmed Problem Vitamin B12 deficiency (801676300) Vitamin B12 deficiency (E53.8) Active confirmed Problem Hypothyroidism (63353422) Hypothyroidism (acquired) (E03.9) Active confirmed Problem Vitamin D deficiency (64860225) Vitamin D deficiency (E55.9) Active confirmed Problem Gastroesophageal reflux disease (358242688) GERD without esophagitis (K21.9) Active confirmed Problem Essential hypertension (81444477) Hypertension, essential (I10) Active confirmed Problem Chronic pain (86827853) Other chronic pain (G89.29) Active confirmed Problem Body mass index 30+ - obesity (261641663) BMI 30.0-30.9,adult (Z68.30) Active confirmed Problem Seasonal allergic rhinitis (075057873) Acute seasonal allergic rhinitis (J30.2) Active confirmed Problem Grief (553300254) Grief (F43.21) Active confirm ed Vital Signs Heart Rate 94 /min 01/11/2025 Temperature 97.8 degrees Fahrenheit 01/11/2025 Blood pressure diastolic 72 mm Hg 01/11/2025 Height 5 ft 6 in in 01/11/2025 Blood pressure systolic 140 mm Hg 01/11/2025 Weight 186.8 lbs 01/11/2025 BMI 30.15 kg/m2 01/11/2025 Encounters Encounter Location Date Provider Diagnosis [facility] [address] [place] [address] 08/08/2024 Provider Migration GERD without esophagitis K21.9 and Vitamin B12 deficiency E53.8 [facility] [address] [place] [address] 05/25/2024 Veronique Ribera Hypertension, essential I10 ; [...] Grief F43.21 and Asymptomatic postmenopausal state Z78.0 [facility] [address] [place] [address] 11/09/2024 Veronique Mounika NORMAN (dyspnea on exertion) R06.09 ; Acute seasonal allergic rhinitis J30.2 ; Persistent cough R05.3 ; Hypertension, essential I10 and Mixed hyperlipidemia E78.2 [facility] [address] [place] [address] 01/11/2025 Veronique Mounika Pain, joint, knee, right M25.561 and Swelling of right knee joint M25.461 [facility] [address] [address] 08/05/2024 John Besson GERD without esophagitis K21.9 [facility] [address] [address] 08/17/2024 John Besson [facility] [address] [address] 10/07/2024 John Besson [facility] [address] [place] [address] 11/25/2024 Veronique Mounika Posterior left knee pain M25.562 [facility] [address] [place] [address] 11/26/2024 Veronique Mounika Shortness of breath R06.02 and Abnormal stress test R94.39 [facility] [address] [place] [address] 12/03/2024 Veronique Mounika Pain in right knee M25.561 and Other chronic pain G89.29 [facility] [address] [address] 12/04/2024 Veronique Mounika Acute seasonal allergic rhinitis J30.2 Assessments Encounter Date Diagnosis (ICD Code) Assessment [...] Acute seasonal allergic rhinitis (ICD-10 - J30.2) 11/25/2024 Posterior left knee pain (ICD-10 - M25.562) 11/26/2024 Shortness of breath (ICD-10 - R06.02) 12/03/2024 Pain in right knee (ICD-10 - M25.561) 12/03/2024 Other chronic pain (ICD-10 - G89.29) 12/04/2024 Acute seasonal allergic rhinitis (ICD-10 - J30.2) 01/11/2025 Swelling of right knee joint (ICD-10 - M25.461) 01/11/2025 Pain, joint, knee, right (ICD-10 - M25.561) Concern for meniscal injury. No improvement with physical therapy and other conservative interventions. Recommend MRI to help guide additional management. 11/26/2024 Abnormal stress test (ICD-10 - R94.39) [...] 07/02/2011 DEXA Hip and Spine - Screening 4 DEXA Hip and Spine - Screening 8 EKG : In House 11/09/2024 EKG : In House 07/02/2011 EKG : In House 12/19/2009 MRI : Head, With and Without Contrast Holter Monitor : Event Recorder 07/02/19 12 Physical Therapy 08/18/2009 Physical Therapy 03/21/2021 H-CBC with AUTO DIFF 07/28/2013 H-CBC with AUTO DIFF 03/06/2010 H-CBC with AUTO DIFF 07/02/2011 H-VITAMIN B12 07/02/2011 H-VITAMIN B12 03/06/2010 H-VITAMIN B12 12/13/2016 H-VITAMIN B12 04/25/2015 H-PT/INR 07/02/2011 H-BMP 03/06/2010 H-CMP 11/14/2011 H-CMP 07/28/2013 H-CMP 07/02/2011 H-LIPID PANEL 07/02/2011 H-LIPID PANEL 07/28/2013 H-TSH 07/28/2013 H-TSH 07/02/2011 H-FREE T3 07/28/2013 H-FREE T3 12/13/2016 H-FREE T4 07/28/2013 H-HELICOBACTER PYLORI IGM AB 07/26/2008 H-URINALYSIS 07/02/2011 H-URINE 24 HOUR FOR PROTEIN 09/11/2010 H-CREATININE CLEARANCE 24HR UA 1 spirometry 12/19/2009 M-Complete Blood Count Auto Diff 020 M-Complete Blood Count Auto Diff 023 M-Comprehensive Metabolic Panel 02/19/20 23 M-Comprehensive Metabolic Panel 12/02/19 M-Lipid Panel 12/02/2019 M-Lipid Panel 02/18/2023 M-Free T4 (Free Thyroxine) 02/18/2023 M-Thyroid Stimulating Hormone 12/02/2019 M-Thyroid Stimulating Hormone 02/18/2023 M-Vitamin B12 02/18/2023 M-Vitamin B12 12/02/2019 M-Vitamin B12 06/28/2020 M-Vitamin B12 05/25/2024 M-Vitamin B12 10/18/2022 M-Vitamin D 25 Hydroxy 10/18/2022 M-Vitamin D 25 Hydroxy 05/25/2024 M-Vitamin D 25 Hydroxy 02/18/2023 Physical Therapy Eval and Treat 12/04/19 25 Insurance Providers Payer Name Payer Address Payer Phone Subscriber Number Group Number Insured Name Patient Relationship to Insured Coverage Start Date Coverage End Date [employer] MEDICARE [address] [address] [place] [address] [id number] Amaya Montague Self - patient is the insured Medical (General) History Medical History History ICD Code Hypertension allergies GERD vitamin b12 deficiency fx left ankle Renal insufficiency syndrome NOS 2008 Normal Colonoscopy, Dr Lorenz Hyperlipidemia 2016 EGD with mild chronic g astritis, repeated 02/22 with gastritis- colonoscopy normal normal mammogram 6/24 Surgical History Surgery Date(Month/Year) 1977 stereotatic bx x 2 rt 5th toe surgery rt 4th toe surgery 2009 cataract surgery-rt eye 12/2019 cataract surgery- left eye 01/2020 Hospitalization History Reason Date(Month/Year) above
--- OUTSIDE RECORDS SUMMARY | 2025-04-20 10:38 | XMS_ITS | Clinical Summary ---
Author Organization Healthcare Address [address] [place] [address] Care Team Providers Care Bag Filler Name Role Phone Unavailable Primary Care Provider Unavailabl e Social History Tobacco Use Types Packs/Day Years Used Date Smoking Tobacco: Never Assessed Comments Unknown Sex and Gender Information Value Date Recorded Sex Assigned at Not on file Legal Sex Female 7:34 PM EDT Gender Identity Not on file Sexual Orientation Not on file Plan of Treatment Health Maintenance Due Date Last Done Comments UKY-Bone Density Scan 1945 UKY-Depression Screening 1945 UKY-Hepatitis C Screening 1945 UKY-Medicare Annual Wellness (AWV) 1945 UKY-Infant/Child/Adol SDOH Screenings 1945 UKY- SDOH Screenings 1964 UKY-Adult SDOH Screenings 1964 [id number] Vaccine ( season) 2025 04/04/2022, 11/28/2021, 02/15/2021, Additional history exists UKY-Influenza Vaccine (#1) 01/04/202512/29, 02/25/2023, 01/26/2022, Additional history exists UKY-DTaP,Tdap,and Td Vaccines (2 - Td or Tdap) 10/18/2032 10/18/2022 UKY-Zoster Vaccines Completed 07/12/2021, UKY-RSV Vaccine: 60+ Years or Completed 02/25/2023 UKY-Pneumococcal Vaccine: 50+ Years Completed 02/26/2024, 04/13/2016, 02/07/2015 HPV Vaccines (No Doses Required) Completed UKY-HIB Vaccines Aged Out No longer e ligible based on patient's age to complete this topic UKY-Hepatitis A Vaccines Aged Out No longer eligible based on patient's age to complete this topic UKY-IPV Vaccines Aged Out No longer e ligible based on patient's age to complete this topic UKY-Rotavirus Vaccines Aged Out No lo nger eligible based on patient's age to complete this topic Insurance HU[employer]NA MEDICARE
== END 2025-04-20 23:59 ==
LOC: RAD 10:13
PROVIDERS: PCP Nurse Practitioner Family; Visit Provider Nurse Practitioner
DX: M72.2 Plantar fascial fibromatosis (principal); M19.072 Primary osteoarthritis, left ankle and foot
CPT/HCPCS: 73610; 73630

== ENCOUNTER 2025-05-05 12:05 | Outpatient (CLI) | payer MEDICARE, OTHER, SELFPAY ==
--- OUTSIDE RECORDS SUMMARY | 2024-08-08 16:30 | XMS_ITS ---
Author Organization [facility] IM PE D VIRGEN Address [address] [facility] [address] [place] [address] Care Team Providers Care Photonics Engineering Technician Name Role Phone John Tobar Primary Care Provider [phone] Veronique Ribera Unavailable [phone] Migration, Provider Unavailable Unavailable REAS[facility] FOR VISIT [facility] Encounter Medications Medication SIG (Take, Route, Frequency, Duration) Notes Start Date End Date Status 3CC SYRINGES AND 23 GAUGE NEEDLES USE MONTHLY FOR B12 INJECTIONS; Duration: 84 DAYS *Please review for potential replacement for e-prescription and drug interaction check* Active Atorvastatin Calcium 20 MG Tablet 1 tab(s) orally once a day; Duration: 90 days Active Levothyroxine Sodium 75 MCG Tablet TAKE 1 TABLET EVERY DAY; Duration: 90 days Active Cetirizine HCl 10 MG Tablet 1 tab(s) orally once a day prn; Duration: 90 days Active Multivitamin 1 TAB ONCE A DAY *Please review and pick correct strength[facility]ulat [facility]. If intended option is not shown, discontinue and re-order from Quick Search* Active Lisinopril 20 MG Tablet 1 tab(s) orally once a day; Duration: 90 days Active Omeprazole 40 MG Capsule Delayed Release 1 cap(s) orally once a day; Duration: 90 days Active Cyanocobalamin 1000 MCG/ML Solution 1000 mcg intramuscularly once a month; Duration: 84 days Active Encounters Encounter Location Date Provider Diagnosis [facility] [place] [facility] [address] [place] [address] 08/08/2024 Provider Migration GERD without esophagitis K21.9 [...] and drug interaction check* Lisinopril 20 MG Tablet 1 tab(s) orally once a day; Duration: 90 days Omeprazole 40 MG Capsule Delayed Release 1 cap(s) orally once a day; Duration: 90 days Cyanocobalamin 1000 MCG/ML Solution 1000 mcg intramuscularly once a month; Duration: 84 days Progress Notes * Amaya GARCIADOB:1945 (79 yo F)Acc No.[id number]:08/08/2024 Patient: Amaya Bazzi Provider: Ibrahima leroy Migration :1945 A ge:78 Y S ex:Female Date:08/08/2024 Address:[address] [place] [address] [place], [id number] Pcp:John Tobar Subjective: * Chief Complaints: * [facility] * Medications: T akingMultivitamin 1 TAB ONCE A DAY , Notes to Pharmacist: *Please review and pick correct [facility]ulation [facility]. If intended option is not shown, discontinue and re-order from Quick Search*Cetirizine HCl 10 MG Tablet 1 tab(s) orally once a day prn Levothyroxine Sodium 75 MCG Tablet TAKE 1 TABLET EVERY DAY Atorvastatin Calcium 20 MG Tablet 1 tab(s) orally once a day Taking Multivitamin 1 TAB ONCE A DAY , Notes to Pharmacist: *Please review and pick correct [facility]. If intended option is not shown, discontinue and re-order from Quick Search*Taking Cetirizine HCl 10 MG Tablet 1 tab(s) orally once a day prn Taking Levothyroxine Sodium 75 MCG Tablet TAKE 1 TABLET EVERY DAY Taking Atorvastatin Calcium 20 MG Tablet 1 tab(s) orally once a day Assessment: * Assessment: 1. G ERD without [...] 90 days, 90 Tablet, Refills 1. ? Billing Information: * Procedure Codes: * Electronic signature of Prov palmirar Migration on 05/05/2025 at 12:09 PM EST Sign off status: Pending * Provider: Ibrahima leroy Migration Date: 0 08/08/2024 Generated for Josue ly/Bhuim/Virgen on: 1 12:09 PM EST
--- OUTSIDE RECORDS SUMMARY | 2025-05-05 12:09 | XMS_ITS | Clinical Summary ---
[facility] Organization [facility] Address [address] [place] [address] Care Team Providers Care Coil Maker Name Role Phone John Tobar MD Primary Care Provider [phone] Family History Medical History Relation Name Comments [...] Most Recently Relevant to Health Maintenance Insurance [facility] MEDICARE ADVANTAGE PPO Care Teams Coil Maker Relationship Specialty Start Date End Date John Tobar MD Critical access hospital[facility] [address] [place] [address] PCP - General 01/17/15
--- OUTSIDE RECORDS SUMMARY | 2025-05-05 12:09 | XMS_ITS | Patient Health Record ---
Author Organization [facility] Address [address] [place] [address] Care Team Providers Care Meat Washer Name Role Phone John Tobar Primary Care Provider [phone] MounikaVeronique Unavailable [phone] Migration, Provider Unavailable Unavailable Allergies No Known Allergies Results Component Value Reference Range Flag Notes X ray : Knee, Right Reviewed date:12/03/2024 05:50:45 PM Interpretation: Performing Lab: Notes/Report: M-Complete Blood Count Auto Diff Reviewed date:05/26/2024 01:35:46 PM Interpretation: Performing Lab: Notes/Report: WBC 8.3 4.8-10.8 K/mm3 N RBC 4.44 4.20-5.40 M/mm3 N HGB 13.5 12.2-16.2 g/dL N HCT 41.7 37.0-47.0 % N MCV 93.9 81-99 fl N MCH 30.4 27.0-31.2 pg N MCHC 32.4 31.8-35.4 g/dL N RDW 13.4 11.5-17.5 % N PLT 270 142-424 K/mm3 N MPV 10.5 7.4-10.4 fl H NE% 66.8 37.0-80.0 % N LY% 24.7 10-50 % N MO% 5.2 1.7-9.3 % N EO% 2.5 0.1-12.0 % N BA% 0.6 0.1-2.0 % N NE# 5.6 1.8-7.8 K/mm3 N LY# 2.1 0.7-4.5 K/mm3 N MO# 0.4 0.1-1.0 K/mm3 N EO# 0.2 0.0-0.4 K/mm3 N BA# 0.1 0-0.2 K/mm3 N M-Comprehensive Metabolic Pa paulette Reviewed date:05/29/2024 10:21:25 AM Interpretation: Performing Lab: Notes/Report: NA 141 136-145 mmol/L N K 4.6 3.5-5.1 mmoL/L N CL 106 98-107 mmol/L N CO2 26 22.0-30.0 mmol/L N GAP 13.6 5-15 mEq/L N BUN 19 7-17 mg/dl H CREATT 0.90 0.52-1.04 mg/dl N GFRAA 73 >60 ML/MIN N EGFR 61 >60 ml/min N GLU 91 74-100 mg/dl N CA 9.3 8.4-10.2 mg/dl N BILIT 0.8 0.2-1.3 mg/dl N AST 26 14-36 U/L N ALT 30 12-78 U/L N TP 6.8 6.3-8.2 g/dl N ALB 4.4 3.5-5.0 g/dl N GLOB 2.4 1.3-3.2 g/dL N AGRATIO 1.8 1.1-1.8 N ALP 83 38-126 U/L N M-Lipid Panel Reviewed date:05/29/2024 10:21:26 AM Interpretation: Performing Lab: Notes/Report: Patient Fasting? Y TRIG 170 30-150 mg/dl H CHOL 149 140-200 mg/dl N DLDL 73.56 100-129 mg/dL L VLDL 34 0-40 mg/dL N HDL 38 40-60 mg/dl L CHLHDL 3.9 1-3.5 H M-Thyroid Stimulating Hormon e Reviewed date:05/26/2024 01:35:51 PM Interpretation: Performing Lab: Notes/Report: TSH 1.22 0.465-4.68 uIU/mL N DEXA Hip and Spine - Screeni ng Reviewed date:06/03/2024 10:21:41 AM Interpretation: Performing Lab: Notes/Report: H-TVITD Reviewed date:05/26/2024 01:35:38 PM Interpretation: Performing Lab: Notes/Report: TVITD 36.3 30-100 ng/mL N Deficient <20 ng/mL Insufficient 20-30 ng/mL Sufficient 30-100 ng/mL Potential Toxicity >100 ng/mL H-VITB12 Reviewed date:05/26/2024 01:35:34 PM Interpretation: Performing Lab: Notes/Report: VITB12 630 239-931 pg/mL N CTA : Cardiac Reviewed date:12/03/2024 05:57:58 PM Interpretation: Performing Lab: Notes/Report: MRI : Knee, Right Reviewed date:01/19/2025 02:55:59 PM Interpretation: Performing Lab: Notes/Report: Cardiolite GXT Reviewed date:11/26/2024 09:59:01 AM Interpretation: Performing Lab: Notes/Report: Echocardiogram Reviewed date:11/25/2024 05:58:18 PM Interpretation: Performing Lab: Notes/Report: Medications Medication SIG (Take, Route, Frequency, Duration) Notes Start Date End Date Status Atorvastatin Calcium 20 MG Tablet 1 tab(s) orally once a day; Duration: 90 days Active Losartan Potassium 50 MG Tablet 1 tablet Orally Once a day; Duration: 90 days 11/09/2024 Active Multivitamin 1 TAB ONCE A DAY Active Levothyroxine Sodium 75 MCG Tablet TAKE 1 TABLET EVERY DAY; Duration: 90 days Active Levocetirizine Dihydrochloride 5 MG Tablet 1 tablet in the evening Orally Once a day; Duration: 90 days Active Omeprazole [...] Unknown 04/04/2021 Administered SHINGRIX Unknown 07/12/2021 Administered Social History Social History Additional Details Category Social Info Options Details Social History Occupation: retired from [employer] Travel outside [place]: no Alcohol: no Sexually active: yes Recreational drug use: no Exercise: no Home smoke detector use: yes Caffeine: yes frequency:1- 2 c ups of coffee Living Will No discussed wishes with children and spouse but wishes not to do formal living will Problems Problem Type SNOMED Code ICD Code Onset Dates Problem Status W/U Status Risk Notes Problem Overweight (310126324) Overweight (E66.3) Active confirmed Problem Mixed hyperlipidemia (311554395) Mixed hyperlipidemia (E78.2) Active confirmed Problem Vitamin B12 deficiency (744583917) Vitamin B12 deficiency (E53.8) Active confirmed Problem Hypothyroidism (93459936) Hypothyroidism (acquired) (E03.9) Active confirmed Problem Vitamin D deficiency (12257339) Vitamin D deficiency (E55.9) Active confirmed Problem Gastroesophageal reflux disease (741638984) GERD without esophagitis (K21.9) Active confirmed Problem Essential hypertension (80091517) Hypertension, essential (I10) Active confirmed Problem Chronic pain (29878292) Other chronic pain (G89.29) Active confirmed Problem Body mass index 30+ - obesity (454366701) BMI 30.0-30.9,adult (Z68.30) Active confirmed Problem Seasonal allergic rhinitis (939466772) Acute seasonal allergic rhinitis (J30.2) Active confirmed Problem Grief (538416636) Grief (F43.21) Active confirm ed Vital Signs Heart Rate 94 /min 01/11/2025 Temperature 97.8 degrees Fahrenheit 01/11/2025 Blood pressure diastolic 72 mm Hg 01/11/2025 Height 5 ft 6 in in 01/11/2025 Blood pressure systolic 140 mm Hg 01/11/2025 Weight 186.8 lbs 01/11/2025 BMI 30.15 kg/m2 01/11/2025 Encounters Encounter Location Date Provider Diagnosis [facility] [address] [place] [address] 08/08/2024 Provider Migration GERD without esophagitis K21.9 and Vitamin B12 deficiency E53.8 [facility] [address] [place], [place] [address] 05/25/2024 Veronique Ribera Hypertension, essential I10 ; [...] Grief F43.21 and Asymptomatic postmenopausal state Z78.0 [facility] [address] [place] [address] 11/09/2024 Veronique Ribera NORMAN (dyspnea on exertion) R06.09 ; Acute seasonal allergic rhinitis J30.2 ; Persistent cough R05.3 ; Hypertension, essential I10 and Mixed hyperlipidemia E78.2 [facility] [address] [place], [place] [address] 01/11/2025 Veronique Ribera Pain, joint, knee, right M25.561 and Swelling of right knee joint M25.461 [facility] [address] [address] 08/05/2024 John Besson GERD without esophagitis K21.9 [facility] [address] [address] 08/17/2024 John Besson [facility] [address] [address] 10/07/2024 John Besson [facility] [address] [place] [address] 11/25/2024 Veronique Ribera Posterior left knee pain M25.562 [facility] [address] [place] [address] 11/26/2024 Veronique Ribera Shortness of breath R06.02 and Abnormal stress test R94.39 [facility] [address] [place] [address] 12/03/2024 Veronique Ribera Pain in right knee M25.561 and Other chronic pain G89.29 [facility] [address] [address] 12/04/2024 Veronique Ribera Acute seasonal allergic rhinitis J30.2 Assessments Encounter [...] DIFF 07/28/2013 H-VITAMIN B12 07/02/2011 H-VITAMIN B12 12/13/2016 H-VITAMIN B12 04/25/2015 H-VITAMIN B12 03/06/2010 H-PT/INR 07/02/2011 H-BMP 03/06/2010 H-CMP 07/02/2011 H-CMP 11/14/2011 H-CMP 07/28/2013 H-LIPID PANEL 07/28/2013 H-LIPID PANEL 07/02/2011 H-TSH 07/02/2011 H-TSH 07/28/2013 H-FREE T3 07/28/2013 H-FREE T3 12/13/2016 H-FREE T4 07/28/2013 H-HELICOBACTER PYLORI IGM AB 07/26/2008 H-URINALYSIS 07/02/2011 H-URINE 24 HOUR FOR PROTEIN 09/11/2010 H-CREATININE CLEARANCE 24HR UA 1 spirometry 12/19/2009 M-Complete Blood Count Auto Diff 023 M-Complete Blood Count Auto Diff 020 M-Comprehensive Metabolic Panel 12/02/19 20 M-Comprehensive Metabolic Panel 02/19/20 M-Lipid Panel 12/02/2019 M-Lipid Panel 02/18/2023 M-Free T4 (Free Thyroxine) 02/18/2023 M-Thyroid Stimulating Hormone 02/18/2023 M-Thyroid Stimulating Hormone 12/02/2019 M-Vitamin B12 12/02/2019 M-Vitamin B12 06/28/2020 M-Vitamin B12 05/25/2024 M-Vitamin B12 10/18/2022 M-Vitamin B12 02/18/2023 M-Vitamin D 25 Hydroxy 02/18/2023 M-Vitamin D 25 Hydroxy 10/18/2022 M-Vitamin D 25 Hydroxy 05/25/2024 Physical Therapy Eval and Treat 12/04/19 25 Insurance Providers Payer Name Payer Address Payer Phone Subscriber Number Group Number Insured Name Patient Relationship to Insured Coverage Start Date Coverage End Date [employer] MEDICARE [address] [address] [place] [address] [phone] [id number] Amaya Self - patient is the insured Medical [...]
--- OUTSIDE RECORDS SUMMARY | 2025-05-05 12:09 | XMS_ITS | Continuity of Care Document ---
Author Organization [facility] Address [address] [place] [address] Care Team Providers Care Concept Artist Name Role Phone JUD MEDINA Busher Helper JUDD FOOTE Primary Care Provider [phone] Assessment No assessment recorded. Plan of Treatment Reminders Order Date Submit Date Provider Last Modified By Organization Details Last Modified Time Details Appointments None record ed. Lab None record ed. Referral None record ed. Procedures None record ed. Surgeries None record ed. Imaging None record ed. Medication Orders None record ed. Patient TargetsNo targets recorded. Patient InstructionsNo instructions recorded. Reason for Referral None Reported. Procedures Surgical History Date Name Laterality Status Provider Name and Address Organization Details Recorded Time 03/04/20 25 DAK - Intralesional Injection completed Brisa Morgan [facility] 03/04/2025 14:59:52 08/14/19 25 DAK - Cryo AK completed [facility] 08/13/2024 09:58:01 08/14/19 25 Blade Biopsy w/ ED&C completed Olive Jameson [facility] 08/13/2024 09:57:20 delivery completed Puja Saleh [facility] 08/13/2024 09:32:26 Imaging Results None [...] Time Tobacco Smoking Status Never Smoker Anaid fleming [facility] 08/13/2024 09:32:15 What Is Your Level Of Caffeine Consumption? Occasional [email or web address] Information not available 03/04/2025 What Was The Date Of Your Most Recent Tobacco Screening? 08/13/2024 Information not available 08/13/2024 Sex: Unknown Functional Status Question Answer Note LastModified by Organization D etails LastModified Time What is your level of alcohol consumption? None [email or web address] Information not available 03/04/2025 Mental Status None recorded. Family History Relationship Description Onset Age of this Age Resolved Age Notes LastModified by Organization Details LastModified Time Sister Malignant neoplasm of skin [email or web address] Not available 08/13 09:31:54 Sister Malignant neoplasm of skin scc Not available 08/13 09:32:05 Medical History Condition Response Squamous Cell Carcinoma N Melanoma N Basal Cell Carcinoma N Skin Cancer Y Gynecological HistoryNo gynecological history recorded. Obstetrics History GPAL:G 0 P 0 0 0 0 Past Encounters Encounter ID Performer Location Encounter Start Date Encounter Closed Date Diagnosis/Indication Diagnosis SNOMED-CT Code Diagnosis ICD10 Code Diagnosis IMO Codes Diagnosis Note [id number] GABRIELE DIAL MD [address] [address] 03/04/2025 14:24:13 03/04/2025 15:13:52 Hypertrophic scar 79392597 L91.0 L29.9 12002 Hx of biopsy w/EDC ( L shoulder blade )--- -----pt notes scar is very itchy and painfulInj ect with K10 today.Eagle mmended OTC silicone scar patches. F/u in 6 weeks to recheck if needed. Health Concerns Section Related Observation LastModified by Organization Lindsey munroe LastModified Time None Recorded Concern Status LastModified by Organization Details LastModified Time None Recorded Payers Encounter Date Sequence Insurance Name Policy Number Policy Sellers Covered Member ID Sellers Member ID Guarantor Name 03/04/2025 1 [employer] (MEDICARE REPLACEMENT/A DVANTAGE - PPO) Amaya Montague [id number] Amaya Montague Notes Date Note Type Note Provider Name and Address Organization Details Recorded Time 03/04/2025 text/html Pt is here for skin lesions/spots: Location: left shoulder, lower left backDuration: 6+/- monthsTreatment s: NONEReports: Itchy, red for back spot. Shoulder spot has no symptoms. RICKY: 08/2024 with Luis Garcia of skin cancer: SCCLast skin cancer: 2024 GABRIELE DIAL MD [address] [place] [address], [address], [facility] 03/04/2025 15:17:24 OBGyn Episode No OBEpisode recorded.
--- OUTSIDE RECORDS SUMMARY | 2025-05-05 12:09 | XMS_ITS | Clinical Summary ---
Author Organization Healthcare Address [address] [place] [address] Care Team Providers Care Burglary Investigator Name Role Phone Unavailable Primary Care Provider [...] SDOH Screenings 1964 UKY-Adult SDOH Screenings 1964 [id number] Vaccine ( season) 2025 04/04/2022, 11/28/2021, 02/15/2021, [...]
--- OUTSIDE RECORDS SUMMARY | 2025-05-05 12:09 | XMS_ITS | Data Portability ---
Author Organization [facility] Address [address] [facility] [address] [place] [address] Care Team Providers Care Poultry Dresser Name Role Phone JUD MEDINA Insurance Counselor JUDD FOOTE Primary Care Provider [phone] Assessment No assessment recorded. Plan of Treatment Reminders Order Date Submit Date Provider Last Modified By Organization Details Last Modified Time Details Appointments None recorded. Lab surgical pathology study 2024 025 [facility], [address] [place] [address], [address], 15:09:03 Referral None recorded. Procedures None recorded. Surgeries None recorded. Imaging None recorded. Medication Orders None recorded. Patient TargetsNo targets recorded. Patient Instructions Encounter Date Encounter Id Patient Instructions Last Modified By Organization Details Last Modified Time 08/13/2024 [id number] Pt's ~3 months ago. [email or web address] Not available 08/13/2024 12:21:58 Reason for Referral None Reported. Results Created Date Observation Date Name Description Value Unit Range Abnormal Flag Note LastModifiedBy Organization Detail LastModifiedTime 08/14/1908/13/2024 SURGI ALEXIS surgical SEE BELOW abnormal [place] topat holog y Repor t NAME: ELAINE [...] Out Date: 08/17 15:08 1 Not Available [facility] [address] [place], [address], 08/17/2024 15:09:03 Result Notes None recorded. Procedures Surgical History Date Name Laterality Status Provider Name and Address Organization Details Recorded Time 03/04/20 25 DAK - Intralesional Injection completed Brisa Morgan [facility] 03/04/2025 14:59:52 08/14/19 25 DAK - Cryo AK completed Olive Jameson [facility] 08/13/2024 09:58:01 08/14/19 25 Blade Biopsy w/ ED&C completed Olive Jameson [facility] 08/13/2024 09:57:20 delivery completed Puja Saleh [facility] 08/13/2024 09:32:26 Imaging Results None recorded. Procedure [...] Tobacco Smoking Status Never Smoker Anaid Saleh [facility] 08/13/2024 09:32:15 What Is Your Level Of Caffeine Consumption? Occasional [email or web address] Information not available 03/04/2025 What Was The Date Of Your Most Recent Tobacco Screening? 08/13/2024 [email or web address] Information not available 08/13/2024 Sex: Unknown Functional Status Question Answer Note LastModified by Organization D etails LastModified Time What is your level of alcohol consumption? None [email or web address] Information not available 03/04/2025 Mental Status None recorded. Family History Relationship Description Onset Age of this Age Resolved Age Notes LastModified by Organization Details LastModified Time Sister Malignant neoplasm of skin [email or web address] Not available 08/13 09:31:54 Sister Malignant neoplasm of skin scc [email or web address] Not available 08/13 09:32:05 Medical History Condition Response Melanoma N Skin Cancer Y Squamous Cell Carcinoma N Basal Cell Carcinoma N Gynecological HistoryNo gynecological history recorded. Obstetrics History GPAL:G 0 P 0 0 0 0 Past Encounters Encounter ID Performer Location Encounter Start Date Encounter Closed Date Diagnosis/Indication Diagnosis SNOMED-CT Code Diagnosis ICD10 Code Diagnosis IMO Codes Diagnosis Note [id number] MD OG SNOW [address] [facility] [place] [address] 08/13/2024 09:09:57 08/13/2024 10:28:58 Solar lentigo 62848499 L81.4 - Benign brown spots - Sun-induce d Multiple b enign melanocytic nevi 343363669 D22.5 - Benign appearing, reassuranc e - Counseled on importance of daily sun protection and self skin exams/jannette toring for ugly duckling lesions 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 vessel growths - Hereditary Seborrheic keratosis 394 428821 L82.1 - Benign overgrowth s of skin - Hereditary Actinic keratosis 444058 007 L57.0 -Precancer ous nature discussed -Will TX with LN2 today (see proc note) -FUP if sites persist after TX Neoplasm o f uncertain behavior of skin 38042013 D48.5 Location 1: L shoulder blade (ED&C) R/O superficia l NMSCLocati on 2: L posterior shoulder (ED&C) R/O superficia l NMSC - Bx performed today (see proc note(s) & surgical path order below for further detail, including location(s ) & DDX(s))- Wound care instructio ns reviewed/h andout provided- Will call with results & arrange tx as indicated at that time [id number] GABRIELE DIAL MD [address],[place] [address] 03/04/2025 14:24:13 03/04/2025 15:13:52 Hypertrophic scar 63960184 L91.0 L29.9 46308 Hx of biopsy w/EDC ( L shoulder [...] Member ID Sellers Member ID Guarantor Name 03/08/2025 1 [employer] (MEDICARE REPLACEMENT/A DVANTAGE - PPO) Amaya Garcia [id number] Amaya Garcia Notes Date Note Type Note Provider Name and Address Organization Details Recorded Time 08/13/2024 text/html I am here for a skin check. spot on back. NEW PATIENT JUD MEDINA MD [address] [place], [address], [facility] 08/13/2024 12:22:14 03/04/2025 text/html Pt is here for skin lesions/spots: Location: left shoulder, lower left backDuration: 6+/- monthsTreatment s: NONEReports: Itchy, red for back spot. Shoulder spot has no symptoms. RICKY: 08/2024 with Luis Garcia of skin cancer: SCCLast skin cancer: 2024 GABRIELE DIAL MD [address] [place], [address], [facility] 03/04/2025 15:17:24 OBGyn Episode No OBEpisode recorded.
[2025-05-05 12:32] LABS: Blood Urea Nitrogen 21 mg/dl (7-17); Creatinine,Serum 1.00 mg/dl (0.52-1.04); Estimated Glomerular Filt Rate 54 ml/min (>60); GFR (African American) 65 ML/MIN (>60)
== END 2025-05-05 23:59 | disposition home or self-care (01) ==
LOC: LAB 12:06
PROVIDERS: PCP Nurse Practitioner Family; Visit Provider Podiatrist
DX: M19.072 Primary osteoarthritis, left ankle and foot (principal); M25.372 Other instability, left ankle; M77.32 Calcaneal spur, left foot
CPT/HCPCS: 36415; 82565; 84520